=== PATIENT | male | born 1945 | race Caucasian/White ===

== ENCOUNTER 2017-10-09 11:47 | Inpatient (IN) | payer MEDICARE ==
[2017-10-09 12:09] LABS: Absolute Lymphocytes (CBC) 1.1 K/uL (0.7-4.9); Absolute Monocytes 0.5 K/uL (0.1-1.3); Absolute Neutrophil 4.8 K/uL (1.8-8.0); Basophils % 0.7 % (0-1.3); Eosinophils % 0.6 % (0-4.4); Hematocrit 42.8 % (39.6-49.0); Lymphocytes % 17.7 % (15.3-44.8); MCH 28.8 pg (27.0-35.0); MCV 87.2 fL (80-100); MPV 9.1 fL (7.6-11.3); Monocytes % 7.4 % (3.3-12.3); RBC Red Blood Cell Count 4.91 M/uL (4.33-5.43)
[2017-10-09 12:14] LABS: Protime INR 1.13
[2017-10-09 12:45] LABS: CKMB Creatine Kinase MB 4.5 ng/ml (0.3-4.0)
[2017-10-09] MEDS ORDERED: ENOXAPARIN 100 MG/ML SYR SQ ONE (12:50)
[2017-10-09] MEDS ORDERED: METOPROLOL TAR 50 MG TAB ONE (12:50)
[2017-10-09] MEDS ORDERED: ASPIRIN 325 MG TAB ONE (12:50)
[2017-10-09] MEDS ORDERED: METOPROLOL TARTRATE 5 MG/5 ML INJ IV ONE (12:50)
[2017-10-09 14:00] LABS: Thyroid Stimulating Hormone 2.81 uIU/mL (0.34-5.60)
[2017-10-09 14:32] LABS: Potassium 3.3 mEq/L (3.6-5.0)
[2017-10-09 14:38] LABS: Albumin 3.7 g/dL (3.2-5.5); Bilirubin Direct 0.2 mg/dL (0-0.2); Magnesium 1.7 mg/dL (1.8-2.5); Protein, Total 6.8 g/dL (6.0-8.3)
--- NOTE | 2017-10-09 14:51 | EDPHYS ---
Physician Documentation [facility] Name: Dannielle Ulloa Age: 72 yrs Sex: Male : 1945 Arrival Date: 10/09/2017 Time: 11:48 Bed 5 Private MD: ED Physician Christiano Lobo HPI: 10/09 12:57 This 72 yrs old Male presents to ER via Wheelchair with complaints of pm1 Shortness Of Breath. 12:57 The patient has shortness of breath at rest, with light activity, that occurred at pm1 home. Onset: The symptoms/episode began/occurred 5 day(s) ago. The patient's shortness of breath is aggravated by exertion, is alleviated by sitting up. Associated signs and symptoms: Pertinent negatives: chest pain, non-productive cough, productive cough, dizziness, fever, nausea, vomiting. Severity of symptoms: in the emergency department the symptoms are worse. The patient has not experienced similar symptoms in the past. The patient has been recently seen by a physician: the patient's primary care provider, Dr. Wright. Patient went to see his PCP for shortness of breath for the past five days. Shortness of breath progressive getting worse. last night patient had to elevate his head and position himself in order to breath. he also noted that he would easily get winded with exertion. At PCP office, EKG with new onset atrial fibrillation. Historical: - Allergies: 11:51 No Known Allergies; ss - Immunization history:: Adult Immunizations up to date. - Social history:: Smoking status: Patient/guardian denies using tobacco. ROS: 12:57 Constitutional: Negative for fever, chills, and weight loss, Eyes: Negative for injury, pm1 pain, redness, and discharge, ENT: Negative for injury, pain, and discharge, Neck: Negative for injury, pain, and swelling. 12:57 Abdomen/GI: Negative for abdominal pain, nausea, vomiting, diarrhea, and constipation, Back: Negative for injury and pain, : Negative for injury, bleeding, discharge, and swelling, MS/Extremity: Negative for injury and deformity, Skin: Negative for injury, rash, and discoloration, Neuro: Negative for headache, weakness, numbness, tingling, and seizure. 12:57 Cardiovascular: Positive for orthopnea, Negative for chest pain, edema, palpitations, paroxysmal nocturnal dyspnea. 12:57 Respiratory: Positive for shortness of breath, Negative for cough, wheezing. Exam: 12:57 Constitutional: This is a well developed, well nourished patient who is awake, alert, pm1 and in no acute distress. Head/Face: Normocephalic, atraumatic. Eyes: Pupils equal round and reactive to light, extra-ocular motions intact. Lids and lashes normal. Conjunctiva and sclera are non-icteric and not injected. Cornea within normal limits. Periorbital areas with no swelling, redness, or edema. ENT: Nares patent. No nasal discharge, no septal abnormalities noted. Tympanic membranes are normal and external auditory canals are clear. Oropharynx with no redness, swelling, or masses, exudates, or evidence of obstruction, uvula midline. Mucous membranes moist. Neck: Trachea midline, no thyromegaly or masses palpated, and no cervical lymphadenopathy. Supple, full range of motion without nuchal rigidity, or vertebral point tenderness. No Meningismus. Chest/axilla: Normal chest wall appearance and motion. Nontender with no deformity. No lesions are appreciated. 12:57 Respiratory: Lungs have equal breath sounds bilaterally, clear to auscultation and percussion. No rales, rhonchi or wheezes noted. No increased work of breathing, no retractions or nasal flaring. Abdomen/GI: Soft, non-tender, with normal bowel sounds. No distension or tympany. No guarding or rebound. No evidence of tenderness throughout. Back: No spinal tenderness. No costovertebral tenderness. Full range of motion. Skin: Warm, dry with normal turgor. Normal color with no rashes, no lesions, and no evidence of cellulitis. MS/ Extremity: Pulses equal, no cyanosis. Neurovascular intact. Full, normal range of motion. 12:57 Cardiovascular: Rate: tachycardic, Rhythm: irregular, Pulses: no pulse deficits are appreciated, Heart sounds: normal, murmur, not appreciated, rub, not appreciated, gallop, not appreciated, Edema: is not appreciated. 12:57 ECG was reviewed by the Attending Physician. Atrial fibrillation with RVR 12:57 Neuro: Orientation: is normal, Mentation: is normal, Motor: is normal, moves all fours, strength is normal, strength is 5/5 in all extremities. Vital Signs: 11:51 Pulse 122; Resp 28; Pulse Ox 99% on R/A; Weight 119.29 kg; Height 6 ft. 0 in. (182.88 ss cm); Pain 0/10; 12:38 BP 127 / 100; Pulse 96; Resp 18; Pulse Ox 98% on R/A; hb 13:00 BP 103 / 89; Pulse 98; Resp 18; Pulse Ox 98% on R/A; Pain 0/10; ph 13:58 BP 112 / 88; Pulse 96; Resp 16; Pulse Ox 100% on 2 lpm NC; ph 15:00 BP 103 / 86; Pulse 99; Resp 19; Pulse Ox 100% on R/A; hb 16:15 BP 98 / 82; Pulse 110; Resp 18; Pulse Ox 99% on R/A; ph 17:30 BP 108 / 78; Pulse 101; Resp 18; Temp 97.4; Pulse Ox 98% on R/A; Pain 0/10; ph 11:51 Body Mass Index 35.67 (119.29 kg, 182.88 cm) ss 13:58 pt placed on o2 for comfort ph MDM: 11:56 Patient medically screened. [facility] 13:04 Data reviewed: vital signs. Data interpreted: Pulse oximetry: on room air is 98 %. pm1 Interpretation: normal. 14:43 Counseling: I had a detailed discussion with the patient and/or guardian regarding: the pm1 historical points, exam findings, and any diagnostic results supporting the discharge/admit diagnosis, lab results, the need for further work-up and treatment in the hospital. 10/09 11:50 Order name: Basic Metabolic Panel; Complete Time: 14:42 ag 10/09 11:50 Order name: BNP; Complete Time: 12:54 ag 10/09 11:50 Order name: CBC with Diff; Complete Time: 12:54 ag 10/09 11:50 Order name: Ckmb; Complete Time: 14:42 ag 10/09 11:50 Order name: CPK; Complete Time: 14:42 ag 10/09 11:50 Order name: LFT's; Complete Time: 14:42 ag 10/09 11:50 Order name: Magnesium; Complete Time: 14:42 ag 10/09 11:50 Order name: PT-INR; Complete Time: 12:54 ag 10/09 11:50 Order name: Ptt, Activated; Complete Time: 12:54 ag 10/09 11:50 Order name: Troponin (emerg Dept Use Only); Complete Time: 12:54 ag 10/09 11:50 Order name: TSH; Complete Time: 14:42 ag 10/09 11:58 Order name: Echo w/ Doppler carlos manuel 10/09 11:50 Order name: EKG; Complete Time: 11:52 ag 10/09 11:50 Order name: Cardiac monitoring; Complete Time: 11:58 ag 10/09 11:50 Order name: EKG - Nurse/Tech; Complete Time: 11:58 ag 10/09 11:50 Order name: IV Saline Lock; Complete Time: 11:58 ag 10/09 11:50 Order name: Labs collected and sent; Complete Time: 11:58 ag 10/09 11:50 Order name: O2 Per Protocol; Complete Time: 11:58 ag 10/09 11:50 Order name: O2 Sat Monitoring; Complete Time: 11:58 ag 10/09 11:50 Order name: Urine Dipstick-Ancillary (obtain specimen); Complete Time: 14:00 ag 10/09 13:47 Order name: Diet Heart Healthy; Complete Time: 13:48 ph 10/09 15:48 Order name: CONS Physician Consult EDMS Administered Medications: 12:36 Drug: Lovenox 1 mg/kg Route: Sub-Q; Site: abdomen; hb 13:00 Follow up: Response: No adverse reaction ph 12:36 Drug: Lopressor 5 mg Route: IVP; Site: right antecubital; hb 13:00 Follow up: Response: No adverse reaction; Cardiac rhythm changed ph 12:37 Drug: Lopressor (metoprolol TARTRATE) 50 mg Route: PO; hb 13:00 Follow up: Response: No adverse reaction; Cardiac rhythm changed ph 12:37 Drug: Aspirin 325 mg Route: PO; hb 13:00 Follow up: Response: No adverse reaction ph 16:06 Drug: Magnesium Sulfate 1 grams Route: IVPB; Infused Over: 1 hrs; Site: left hb antecubital; 17:15 Follow up: Response: No adverse reaction; IV Status: Completed infusion ph 16:06 Drug: Potassium Effervescent Tablet 50 mEq Route: PO; hb 16:30 Follow up: Response: No adverse reaction ph 16:08 Not Given (not indicated): Lopressor 5 mg IVP once; Hold for SBP <100 or HR <60. hb Disposition: 10/09/17 14:50 Hospitalization ordered by Omid Garvin for Inpatient Admission. Preliminary diagnosis is Atrial fibrillation and flutter - New onset. - Bed requested for Telemetry/MedSurg (Inpatient). - Status is Inpatient Admission. ss - Condition is Stable. - Problem is new. - Symptoms have improved. UTI on Admission? No Addendum: 10/12/2017 08:32 Co-signature as Attending Physician, Christiano Lobo MD I agree with the assessment and c eagle plan of care. Signatures: Dispatcher [employer] EDMS Christiano Lobo MD MD cha Smirch, Shelby, EFRAÍN RN ss Preeti Carrillo Patrick, SHERYL DIRECTOR BUSINESS DEVELOPMENT pm1 Viji Osorio RN RN Holly Brink RN ph Corrections: (The following items were deleted from the chart) 10/09 12:16 11:52 Chest Single View+RAD.RAD.BRZ ordered. EDLA EDMS
--- NOTE | 2017-10-09 14:51 | ER ---
Nurse's Notes [facility] Name: Dannielle Ulloa Age: 72 yrs Sex: Male : 1945 Arrival Date: 10/09/2017 Time: 11:48 Bed 5 Private MD: Diagnosis: Atrial fibrillation and flutter-New onset Presentation: 10/09 11:49 Presenting complaint: Patient states: shortness of breath that began 5 days ago. Pt had ss an outpatient EKG today which showed new onset AFIB RVR. Transition of care: patient was not received from another setting of care. Onset of symptoms was October 05, 2017. Care prior to arrival: None. 11:49 Method Of Arrival: Wheelchair ss 11:49 Acuity: PO 3 ss Historical: - Allergies: 11:51 No Known Allergies; ss - Immunization history:: Adult Immunizations up to date. - Social history:: Smoking status: Patient/guardian denies using tobacco. Screenin:30 Abuse screen: Denies threats or abuse. Denies injuries from another. Nutritional ph screening: No deficits noted. Tuberculosis screening: No symptoms or risk factors identified. Fall Risk None identified. Assessment: 12:00 General: Appears in no apparent distress. comfortable, well groomed, Behavior is calm, ph cooperative, appropriate for age, Denies fever, feeling ill. Pain: Denies pain. Neuro: Level of Consciousness is awake, alert, obeys commands, Oriented to person, place, time, situation. Cardiovascular: Reports lightheadedness, shortness of breath, Denies chest pain, diaphoresis, nausea, vomiting, Capillary refill < 3 seconds Patient's skin is warm and dry. Rhythm is atrial fibrillation with rapid ventricular response. Respiratory: Reports shortness of breath at rest Airway is patent Respiratory effort is even, unlabored, Respiratory pattern is regular, symmetrical, Breath sounds are clear bilaterally. Denies cough. GI: No signs and/or symptoms were reported involving the gastrointestinal system. Derm: Skin is intact, is healthy with good turgor, Skin is pink, warm \\T\\ dry. Musculoskeletal: Circulation, motion, and sensation intact. Range of motion: intact in all extremities. 13:00 Reassessment: Patient appears in no apparent distress at this time. Patient and/or ph family updated on plan of care and expected duration. Pain level reassessed. Patient is alert, oriented x 3, equal unlabored respirations, skin warm/dry/pink. Pt resting quietly, cardiac rhythm remains a-fib, however rate has decreased to 85-105 bpm, pt denies pain at this time, awaiting room assignment. 13:53 Reassessment: Patient appears in no apparent distress at this time. Patient and/or ph family updated on plan of care and expected duration. Pain level reassessed. Patient is alert, oriented x 3, equal unlabored respirations, skin warm/dry/pink. Pt resting quietly, states, " I haven't eaten anything all day and I am hungry. Do you think I can get something to eat?" ERP notified of pt's request, tray ordered from cafeteria. 14:30 Reassessment: Patient appears in no apparent distress at this time. Patient and/or hb family updated on plan of care and expected duration. Pain level reassessed. Patient is alert, oriented x 3, equal unlabored respirations, skin warm/dry/pink. Admission ordered, awaiting room assignment at this time. 15:30 Reassessment: Patient appears in no apparent distress at this time. No changes from hb previously documented assessment. Patient and/or family updated on plan of care and expected duration. Pain level reassessed. Patient is alert, oriented x 3, equal unlabored respirations, skin warm/dry/pink. 16:30 Reassessment: Patient appears in no apparent distress at this time. No changes from ph previously documented assessment. Patient and/or family updated on plan of care and expected duration. Pain level reassessed. Patient is alert, oriented x 3, equal unlabored respirations, skin warm/dry/pink. 17:42 Reassessment: Patient appears in no apparent distress at this time. Patient and/or ph family updated on plan of care and expected duration. Pain level reassessed. Patient is alert, oriented x 3, equal unlabored respirations, skin warm/dry/pink. Report called to Junior Ray RN Patient denies pain at this time. Vital Signs: 11:51 Pulse 122; Resp 28; Pulse Ox 99% on R/A; Weight 119.29 kg; Height 6 ft. 0 in. (182.88 ss cm); Pain 0/10; 12:38 BP 127 / 100; Pulse 96; Resp 18; Pulse Ox 98% on R/A; hb 13:00 BP 103 / 89; Pulse 98; Resp 18; Pulse Ox 98% on R/A; Pain 0/10; ph 13:58 BP 112 / 88; Pulse 96; Resp 16; Pulse Ox 100% on 2 lpm NC; ph 15:00 BP 103 / 86; Pulse 99; Resp 19; Pulse Ox 100% on R/A; hb 16:15 BP 98 / 82; Pulse 110; Resp 18; Pulse Ox 99% on R/A; ph 17:30 BP 108 / 78; Pulse 101; Resp 18; Temp 97.4; Pulse Ox 98% on R/A; Pain 0/10; ph 11:51 Body Mass Index 35.67 (119.29 kg, 182.88 cm) ss 13:58 pt placed on o2 for comfort ph ED Course: 11:48 Patient arrived in ED. ss 11:51 Triage completed. ss 11:51 Arm band placed on right wrist. ss 11:55 Christiano Lobo MD is Attending Physician. [facility] 11:56 Inserted saline lock: 20 gauge in right antecubital area, using aseptic technique. 3 Blood collected. 11:56 Initial lab(s) drawn, by wv, sent to lab. 3 11:58 Edi Baker NP is PHCP. pm1 12:29 Holly Brink RN is Primary Nurse. ph 12:31 Patient has correct armband on for positive identification. Placed in gown. Bed in low ph position. Call light in reach. Side rails up X 1. knot saw operator on. Pulse ox on. NIBP on. Warm blanket given. 14:50 Omid Garvin MD is Hospitalizing Provider. pm1 17:44 No provider procedures requiring assistance completed. Patient admitted, IV remains in ph place. Administered Medications: 12:36 Drug: Lovenox 1 mg/kg Route: Sub-Q; Site: abdomen; hb 13:00 Follow up: Response: No adverse reaction ph 12:36 Drug: Lopressor 5 mg Route: IVP; Site: right antecubital; hb 13:00 Follow up: Response: No adverse reaction; Cardiac rhythm changed ph 12:37 Drug: Lopressor (metoprolol TARTRATE) 50 mg Route: PO; hb 13:00 Follow up: Response: No adverse reaction; Cardiac rhythm changed ph 12:37 Drug: Aspirin 325 mg Route: PO; hb 13:00 Follow up: Response: No adverse reaction ph 16:06 Drug: Magnesium Sulfate 1 grams Route: IVPB; Infused Over: 1 hrs; Site: left hb antecubital; 17:15 Follow up: Response: No adverse reaction; IV Status: Completed infusion ph 16:06 Drug: Potassium Effervescent Tablet 50 mEq Route: PO; hb 16:30 Follow up: Response: No adverse reaction ph 16:08 Not Given (not indicated): Lopressor 5 mg IVP once; Hold for SBP <100 or HR <60. hb Outcome: 14:50 Decision to Hospitalize by Provider. pm1 17:44 Admitted to Tele accompanied by tech, via wheelchair, room 409. ph 17:44 Condition: stable 17:44 Instructed on the need for admit. 18:05 Patient left the ED. Signatures: Christiano Lobo MD MD cha Smirch, Shelby, RN RN Holly Brink RN RN Edi Baker, SHERYL VARNISH COOKER pm1 Viji Osorio RN RN [employer] 3 Corrections: (The following items were deleted from the chart) 15:39 15:39 BP 103 / 86; Pulse 99bpm; Resp 19bpm; Pulse Ox 100% RA; hb hb
--- NOTE | 2017-10-09 14:56 | ECHO ---
HEIGHT: 6 ft 0in WEIGHT: 263 lb oz DATE OF STUDY: 10/09/[address]: Christiano Lobo MD 2-DIMENSIONAL: YES M.MODE: YES DOPPLER: YES COLOR FLOW: YES TDS: NO PORTABLE: NO DEFINITY: NO BUBBLE STUDY: NO DIAGNOSIS: CONGESTIVE HEART FAILURE CARDIAC HISTORY: CATHERIZATION: NO SURGERY: NO PROSTHETIC VALVE: NO PACEMAKER: NO MEASUREMENTS (cm) DIASTOLIC (NORMALS) SYSTOLIC (NORMALS) IVSd 1.1 (0.6-1.2) LA Diam 4.5 (1.9-4.0) LVEF 35-39% LVIDd 5.3 (3.5-5.7) LVIDs 4.0 (2.0-3.5) %FS 25% LVPWd 1.1 (0.6-1.2) Ao Diam 3.3 (2.0-3.7) 2 DIMENSIONAL ASSESSMENT: RIGHT ATRIUM: DILATED LEFT ATRIUM: DILATED RIGHT VENTRICLE: NORMAL LEFT VENTRICLE: NORMAL TRICUSPID VALVE: NORMAL MITRAL VALVE: NORMAL PULMONIC VALVE: NORMAL AORTIC VALVE: MILD SCLEROSIS PERICARDIAL EFFUSION: NONE AORTIC ROOT: NORMAL LEFT VENTRICULAR WALL MOTION: GLOBAL HYPOKINESIS. DOPPLER/COLOR FLOW: MILD MITRAL AND TRICUSPID REGURGITATION. NORMAL RIGHT VENTRICULAR SYSTOLIC PRESSURE. COMMENTS: DEPRESSED LEFT VENTRICULAR EJECTION FRACTION. DILATED LEFT AND RIGHT ATRIUM. MILD AORTIC SCLEROSIS WITH NO AORTIC STENOSIS/AORTIC REGURGITATION. MILD MITRAL AND TRICUSPID REGURGITATION. ATRIAL FIBRILLATION, HEART RATE 119 BEATS PER MINUTE. TECHNOLOGIST: DANILO BARTON
[2017-10-09] MEDS ORDERED: ONDANSETRON 4 MG/2 ML VIAL IV PRN (15:43)
[2017-10-09] MEDS ORDERED: ACETAMINOPHEN 500 MG TAB PO PRN (15:43)
[2017-10-09] MEDS ORDERED: NA CHLORIDE 0.9% 1,000 ML IV SCH (16:00)
[2017-10-09] MEDS ORDERED: MAGNESIUM SULFATE 1 gm IVPB 1 GM/100 ML BAG IV ONE (16:29)
[2017-10-09] MEDS ORDERED: POTASSIUM 25 MEQ EFFERV TAB ONE (16:29)
[2017-10-09] MEDS ORDERED: LISINOPRIL 10 MG TAB PO SCH (16:44)
[2017-10-09] MEDS ORDERED: METOPROLOL TARTRATE 5 MG/5 ML INJ IV PRN (16:45)
[2017-10-09] MEDS: FUROSEMIDE 40 MG/4 ML VIAL IV SCH (17:00)
[2017-10-09] MEDS: METOPROLOL TAR 25 MG TAB PO SCH (18:43)
[2017-10-09] MEDS: ENOXAPARIN 100 MG/ML SYR SQ SCH (20:10)
[2017-10-09] MEDS ORDERED: FUROSEMIDE 40 MG/4 ML VIAL IV ONE (21:58)
[2017-10-10] MEDS ORDERED: POTASSIUM CL SA 10 MEQ TAB PO ONE ×2 (00:10→21:00)
--- NOTE | 2017-10-10 02:20 | HP ---
Date of Admission: 10/09/2017 Primary Care Physician: Allison Wright DO. Project Drilling Engineer: Jean Connell MD Chief Complaint: Shortness of breath. History Of Present Illness: The patient is a 72-year-old male who was in his usual state of health with no significant past medical history, who comes in with shortness of breath. The patient states that for the past 5 days, he has been having difficulty breathing when he sleeps at night. He notes that he has swelling of his lower extremities. He needed to put a couple of pillows in order to help him breathe. He also had to sleep in a recliner in order to get continuous sleep. The patient does note getting up to use the restroom to urinate multiple times a night. The patient has not been diagnosed with any previous medical conditions, was recently established with Dr. Wright, and on the day of admission was in her office. Initial workup revealed that he was in atrial fibrillation with RVR, and therefore, he was transferred over to the ER. The patient's symptoms are constant, moderate, progressively worsening. He denies any chest pain, nausea, vomiting, fevers, chills, cough, sputum production, or gastroesophageal reflux symptoms. The patient's workup revealed a BNP of 707. Potassium and magnesium were low. Troponin was 0.04. His EKG showed AFib with RVR. rate in the 120s. His chest x-ray showed CHF. The patient was given aspirin and IV Lopressor. His potassium was replaced. The patient was then referred for admission. When the patient was seen in the ER, he was awake, alert, oriented x3, in some mild distress. Past Medical History: History of basal cell cancer. Past Surgical History: None. Allergies: TO PENICILLIN A CHILD. DOES NOT REMEMBER THE REACTION. Medications: The patient takes a whole host of supplements including Mannate[employer] , CoQ10, amongst others including topical ointments. Social History: The patient denies any tobacco use, alcohol use, or illicit drug use. Family History: Father of heart attack. Mother had stroke. Father also had congestive heart failure. Review of Systems: An 11-point system reviewed, negative except as per HPI. Physical Examination: Vital Signs: Pulse 122, respirations 28, pulse ox 99% on room air, blood pressure 127/100. General: Awake, alert, oriented x3. Elderly male somewhat in distress. Obese. HEENT: Normocephalic, atraumatic. PERRLA. EOMI. Moist mucous membranes. Oropharynx is clear. Poor dentition. Conjunctiva is anicteric. Neck: Supple. No JVD. Trachea midline. CV: S1, S2. Irregularly irregular. Peripheral pulses are present bilaterally. No murmurs. Respiratory: Diminished breath sounds. Some crackles are heard. No wheezing or stridor. Gastrointestinal: Soft abdomen. Obese, nontender, nondistended. Positive bowel sounds. No guarding or rigidity. Extremities: No clubbing, cyanosis, 2+ edema up to the shins. Skin: The patient has lesions on his face and forehead, consistent with seborrheic keratosis. He also has some remnants of basal cell carcinoma on the right side of his tenriism. Neurologic: Cranial nerves 2 through 12 intact grossly. No focal neurological deficit. Speech is normal. Strength is 5/5 in bilateral upper and lower extremities. Sensation intact to light touch. Psych: Mood is okay. Affect is full. Insight and judgment are fair. Laboratory Data: Sodium 136, potassium 3.3, chloride 104, CO2 of 26. BUN 27, creatinine 0.93, glucose 94, calcium 9.1, magnesium 1.7. Troponin 0.04. BNP 707. TSH 2.81. WBC 6.5, H and H 14.1 and 42.8, platelets 189. INR 1.13. Diagnostic Data: Echocardiogram shows EF 35-39%. Chest x-ray shows CHF. EKG shows atrial fibrillation with RVR, rate of 128, right bundle-branch block. Assessment And Plan: A 72-year-old male with; 1. Acute new onset atrial fibrillation with rapid ventricular response, improved with IV Lopressor. We will continue with rate control with beta- blockers and start anticoagulation with Lovenox. Dr. Connell with Cardiology has been consulted, likely secondary to his underlying severe congestive heart failure and multiple electrolyte abnormalities. 2. Hypokalemia, replace and monitor. 3. Hypomagnesemia, replace and monitor. 4. Acute systolic congestive heart failure, new onset, likely due to long- standing elevated blood pressure. 5. Elevated troponin level, likely secondary to above. 6. Likely benign prostatic hyperplasia. The patient has nocturia. We will start on Flomax. 7. History of basal cell carcinoma, untreated. The patient will need outpatient followup with Dermatology. 8. Obesity. 9. Gastrointestinal and deep venous thrombosis prophylaxis with PPI and Lovenox. Plan: Admit the patient to med surgical, admit as inpatient. no living will or MPOA. ASHU Voice ID: [id number] MTDD
[2017-10-10 07:17] LABS: Absolute Lymphocytes (CBC) 1.5 K/uL (0.7-4.9); Absolute Monocytes 0.5 K/uL (0.1-1.3); Absolute Neutrophil 4.4 K/uL (1.8-8.0); Basophils % 0.6 % (0-1.3); Eosinophils % 1.4 % (0-4.4); Hematocrit 40.1 % (39.6-49.0); Lymphocytes % 22.9 % (15.3-44.8); MCV 87.4 fL (80-100); MPV 9.6 fL (7.6-11.3); Monocytes % 7.8 % (3.3-12.3); RBC Red Blood Cell Count 4.59 M/uL (4.33-5.43)
[2017-10-10] MEDS: METOPROLOL TAR 25 MG TAB PO SCH (07:29)
[2017-10-10 07:31] LABS: Albumin 3.4 g/dL (3.2-5.5); Bilirubin Total 0.8 mg/dL (0.3-1.2); Magnesium 1.9 mg/dL (1.8-2.5); Potassium 3.7 mEq/L (3.6-5.0)
[2017-10-10] MEDS: TAMSULOSIN 0.4 MG SR CAP PO SCH (08:40)
[2017-10-10] MEDS: ENOXAPARIN 100 MG/ML SYR SQ SCH (08:40)
[2017-10-10] MEDS: FUROSEMIDE 40 MG/4 ML VIAL IV SCH (08:40)
[2017-10-10] MEDS: FUROSEMIDE 40 MG TABLET PO SCH (08:58)
[2017-10-10] MEDS: APIXABAN 5 MG TABLET PO SCH ×2 (08:58→21:14)
--- NOTE | 2017-10-10 13:46 | CON ---
Chief Complaint: Shortness of breath. History Of Present Illness: Mr. Ulloa went to see a doctor for the first time in some 25 years. He had been feeling more short of breath than usual. He also noticed it was hard to lay flat. When he came to the hospital, he had chest x-ray, evidence of congestive heart failure. Echocardiogram revea ls ejection fraction is in the 30s and he is in atrial fibrillation. He has never had any of those p roblems before. Medications: He takes no medications. Allergies: REPORTS NO ALLERGIES. Social History: Uses no tobacco, no alcohol, no illegal drug. Past Surgical History: No surgeries. Physical Examination: Vital Signs: He is 6 feet tall, 259 pounds. General: Alert, oriented, pleasant, not in distress. Lungs: Clear. Heart: Irregularly irregular. No significant murmur. Abdomen: Soft. Extremities: Mild edema. Distal pulses palpable. Laboratory Data: His electrocardiogram does not seem to be in the chart for some reason. I will jose maria e an effort to make sure that makes it to the chart. Reportedly shows atrial fib with rapid ventricu lar response, right bundle heart rate 128. Presently, on medications his heart rate is 90. Impression: The patient has rate control. Will be given oral anticoagulation with Eliquis 5 b.i.d. I think he should be on Entresto, so I will stop the lisinopril and in 3 days we can start Entresto after that for at least 36 hours, and after he has been anticoagulated for 3 weeks he could be topher t back for an elective cardioversion to see if we can reestablish sinus rhythm and likely the patient is going to try Betapace on instead of metoprolol. I would not recommend that switch now, but in ab out 3 weeks after anticoagulation. He needs to have an evaluation of his coronary arteries and an ou tpatient pharmacologic nuclear stress test would be helpful. At this point, I believe hospitalist tamela white could be outpatient. KRISTEN/SOLO Voice ID: [id number] Report ID: [id number]
[2017-10-10 13:58] LABS: Urine Appearance CLEAR; Urine Bilirubin NEGATIVE (NEG); Urine Blood NEGATIVE (NEG); Urine Color YELLOW; Urine Glucose NEGATIVE (NEG); Urine Microscopic Reflex NO UMIC; Urine Protein NEGATIVE (NEG); Urine Specific Gravity 1.015 (1.005-1.030); Urine Urobilinogen 0.2 mg/dL (0.2-1.0); Urine pH 5.5 (5.0-7.0)
--- NOTE | 2017-10-10 15:19 | PN ---
Date of Progress Note: 10/10/2017 Subjective: The patient seen and examined. Chart reviewed and case discussed with RN and Dr. Connell . The patient states that he is still having a lot of difficulty, lying flat, he was unable to get m uch sleep and had to sit up on the chair to get some rest. The patient's blood pressure has been run jayden on the low side. Review of Systems: Negative except as above. Medications: Reviewed. Physical Examination: Vital Signs: Temperature 96.9, heart rate 59, blood pressure 105/68, respirations 16, O2 98% on 2 L via nasal cannula. General: Awake, alert, oriented x3, in some mild distress, ill-appearing male, elderly, obese, BMI 3 5.2. CV: S1, S2, irregularly irregular. Peripheral pulses present bilaterally. Respiratory: Diminished breath sounds. Some crackles. No wheezing. Abdomen: Abdomen is soft, nontender, nondistended. Positive bowel sounds. Extremities: No clubbing, cyanosis, 2+ edema bilateral lower extremities. Neurologic: Nonfocal. Skin: The patient has multiple lesions on the left side of his face and forehead, possible seborrhei c keratosis versus melanoma. Laboratory Data: Sodium 139, potassium 3.7, chloride 106, CO2 of 27, BUN 37, creatinine 1.16, glucos e 85, calcium 8.9, magnesium 1.9. WBC 6.6, H and H 13.3, 40.1, and platelets 190. Assessment And Plan: A 72-year-old male with: 1.New onset atrial fibrillation with rapid ventricular response. The patient still in atrial fibril lation. Continue beta-dio. The patient will be switched over to Eliquis today from Lovenox. Ap preciate Dr. Connell' input likely secondary to his acute congestive heart failure. No acute abnormal ities. 2.Hypokalemia, replace and monitor. 3.Hypomagnesemia. We will continue to monitor and replace. 4.Acute systolic congestive heart failure, new onset EF is 35-39%. The patient will need Entresto o n discharge. 5.Elevated troponin level, likely secondary to acute congestive heart failure and atrial fibrillatio n. No chest pain. 6.Benign prostatic hyperplasia. The patient started on Flomax. 7.History of basal cell carcinoma, untreated. The patient will need outpatient followup with Dermat ology. The patient is currently not a candidate for surgery due to his acute cardiac issues. 8.Severe obesity. BMI 35.2. 9.Hypotension. The patient unable to tolerate medications due to his blood pressure. 10.Gastrointestinal and deep venous thrombosis prophylaxis with PPI and the patient will be switched over to Eliquis. ASHU Voice ID: [id number] Report ID: [id number]
[2017-10-11] MEDS: METOPROLOL TAR 25 MG TAB PO SCH ×2 (06:00→08:54)
[2017-10-11 06:25] LABS: Absolute Lymphocytes (CBC) 1.4 K/uL (0.7-4.9); Absolute Monocytes 0.6 K/uL (0.1-1.3); Absolute Neutrophil 4.5 K/uL (1.8-8.0); Basophils % 0.7 % (0-1.3); Eosinophils % 2.1 % (0-4.4); Hematocrit 39.7 % (39.6-49.0); Lymphocytes % 21.1 % (15.3-44.8); MCV 87.3 fL (80-100); MPV 9.6 fL (7.6-11.3); Monocytes % 8.5 % (3.3-12.3); RBC Red Blood Cell Count 4.55 M/uL (4.33-5.43)
[2017-10-11 06:51] LABS: Albumin 3.3 g/dL (3.2-5.5); Bilirubin Total 0.8 mg/dL (0.3-1.2); Potassium 3.3 mEq/L (3.6-5.0); Protein, Total 6.3 g/dL (6.0-8.3)
[2017-10-11] MEDS ORDERED: POTASSIUM 25 MEQ EFFERV TAB PO ONE (08:00)
[2017-10-11] MEDS: TAMSULOSIN 0.4 MG SR CAP PO SCH (08:55)
[2017-10-11] MEDS: APIXABAN 5 MG TABLET PO SCH ×2 (08:55→21:06)
[2017-10-11] MEDS: FUROSEMIDE 40 MG TABLET PO SCH (10:44)
[2017-10-11] MEDS ORDERED: LISINOPRIL 5 MG TAB PO SCH (12:00)
[2017-10-11] MEDS ORDERED: CARVEDILOL 3.125 MG TAB PO SCH (12:00)
--- NOTE | 2017-10-11 15:12 | PN ---
Date of Progress Note: 10/11/2017 Subjective: The patient is seen and examined. Chart reviewed and case discussed with RN. The patie nt continues to be in atrial fibrillation with low blood pressure, which he states is his baseline bl ood pressure. The patient denies any dizziness. No palpitation. Does report some orthopnea and sti ll switching between the sofa bed and his hospital bed. Review of Systems: Negative except as above. Medications: Reviewed. Physical Examination: Vital Signs: Temperature 97, heart rate 98, blood pressure 86/65, respiration 18, O2 98% on 1 L nasa l cannula. General: Awake, alert, oriented x3. Elderly male, obese, BMI 35.7. CV: S1, S2. Irregularly irregular. Peripheral pulses present bilaterally. Respiratory: Breath sounds improved significantly. No wheezing. No stridor. Gastrointestinal: Abdomen is soft, nontender, nondistended. Positive bowel sounds. Extremities: No clubbing, cyanosis. Peripheral edema. SKIN: The patient has multiple lesions on t he right side of his face and scalp consistent with seborrheic keratosis and possible blaze noma. Neurologic: Nonfocal. Laboratory Data: Sodium 141, potassium 3.3, chloride 106, CO2 29, BUN 32, creatinine 1.05, glucose 8 9, calcium 9. WBC is 6.6, H and H 13.2 and 39.7, platelets 171. Assessment And Plan: A 72-year-old male with: 1.New onset atrial fibrillation with rapid ventricular response. The rate is better controlled. Be ta-ido dose was reduced due to hypotension. Continue Eliquis. Dr. Connell on case. 2.Hypokalemia, replaced. Continue monitor. 3.Hypomagnesemia, replaced. We will monitor. 4.Acute systolic heart failure, ejection fraction 35-39%. Medications adjusted Entresto on dischar ge. 5.Elevated troponin level likely secondary to atrial fibrillation and congestive heart failure. No chest pain. 6.Benign prostatic hyperplasia. The patient started on Flomax. He will need a PSA test and Urology evaluation as an outpatient to rule out any other abnormalities from the prostate. 7.History of basal cell carcinoma of the face, untreated. The patient instructed to follow up with Dermatology or his PCP. 8.Morbid obesity, BMI 35.7 with comorbid condition. 9.Hypotension. Medications adjusted. The patient is asymptomatic. We will continue to monitor. 10.Gastrointestinal and deep venous thrombosis prophylaxis, PPI, the patient already on Eliquis. ASHU Voice ID: [id number] Report ID: [id number]
--- NOTE | 2017-10-11 15:15 | RAD REPORT ---
EXAM DESCRIPTION: Heath Pa And Lat (2 Views)10/11/2017 3:00 pm CLINICAL HISTORY: Shortness of breath COMPARISON: October 09, 2017 FINDINGS: Mild to moderate bilateral pulmonary opacities, small pleural effusions and cardiomegaly are without significant change IMPRESSION: No change in CHF
--- NOTE | 2017-10-11 16:32 | PN ---
Subjective: Mr. Ulloa is still orthopneic, but his lungs sound much better. We are going to get a chest x-ray. He gets hypotensive with very tiny doses of medications. I would recommend that we can reduce the medications enough that his systolic blood pressure is almost always in the high 90s through a pharmacologic stress test. If it indicates ischemia, we will do a cardiac cath. He might benefit from the EZEQUIEL cardioversion. We could attempt to establish sinus rhythm even though he has been in atrial fibrillation probably for some time. If there is no left atrial appendage thrombus demonstrated by EZEQUIEL, he could be safely done that would be a [place] procedure. So we will get the stress test tomorrow, try and get him the tiniest doses of beta-blockers and lisinopril and see if we can help him that way. DAMASO Voice ID: [id number] Report ID: [id number] MTDMarek
[2017-10-11] MEDS: CARVEDILOL 3.125 MG TAB PO SCH (17:31)
[2017-10-12 04:22] LABS: Absolute Lymphocytes (CBC) 0.9 K/uL (0.7-4.9); Absolute Monocytes 0.6 K/uL (0.1-1.3); Absolute Neutrophil 5.9 K/uL (1.8-8.0); Basophils % 0.5 % (0-1.3); Eosinophils % 0.8 % (0-4.4); Hematocrit 37.2 % (39.6-49.0); Lymphocytes % 12.4 % (15.3-44.8); MCH 29.7 pg (27.0-35.0); MCV 86.4 fL (80-100); MPV 9.4 fL (7.6-11.3); Monocytes % 8.5 % (3.3-12.3); RBC Red Blood Cell Count 4.31 M/uL (4.33-5.43)
[2017-10-12 04:33] LABS: Albumin 3.2 g/dL (3.2-5.5); Bilirubin Total 0.9 mg/dL (0.3-1.2); Potassium 3.7 mEq/L (3.6-5.0); Protein, Total 6.2 g/dL (6.0-8.3)
[2017-10-12 06:36] VITALS: BMI 35.3
[2017-10-12] MEDS: CARVEDILOL 3.125 MG TAB PO SCH ×2 (07:53→16:58)
--- NOTE | 2017-10-12 08:56 | RAD REPORT ---
EXAM DESCRIPTION: Heath Single View10/12/2017 6:53 am CLINICAL HISTORY: Shortness of breath COMPARISON: October 11 FINDINGS: Opacities within the right lung base have worsened. Moderate diffuse bilateral pulmonary opacities are present. Pleural effusions are unchanged. The heart remains enlarged IMPRESSION: Moderate CHF Worsening in a right basilar opacity probably representing combination of pulmonary edema, atelectasi s and pleural effusion. Superimposed pneumonia could also have this appearance
[2017-10-12] MEDS ORDERED: REGADENOSON 0.4 MG/5 ML SYR IV ONE (08:57)
[2017-10-12] MEDS ORDERED: POTASSIUM 25 MEQ EFFERV TAB PO ONE (09:00)
[2017-10-12] MEDS: LISINOPRIL 5 MG TAB PO SCH (09:44)
[2017-10-12] MEDS: FUROSEMIDE 40 MG TABLET PO SCH (09:44)
[2017-10-12] MEDS: APIXABAN 5 MG TABLET PO SCH ×2 (09:45→22:18)
[2017-10-12] MEDS: TAMSULOSIN 0.4 MG SR CAP PO SCH (09:45)
--- NOTE | 2017-10-12 17:43 | P.PN ---
Subjective Date of Service: 10/12/17 Primary Care Provider: Dr Wright Chief Complaint: Afib with RVR Pt seen and examined at bedside. Chart reviewed. Pt was not able to complete the Stress test today as he got anxious and was not able to lay flat. Will try again kerry and f/u with Cardiology. Review of Systems 10-point ROS is otherwise unremarkable Physical Examination - Vital Signs Temperature: 97.0 F Blood Pressure: 106/70 Pulse: 100 Respirations: 18 Pulse Ox (%): 100 - Physical Exam General: Alert, In no apparent distress HEENT: Atraumatic, PERRLA, EOMI Neck: Supple, JVD not distended Respiratory: Clear to auscultation bilaterally, Normal air movement Cardiovascular: Regular rate/rhythm, Normal S1 S2 Gastrointestinal: Normal bowel sounds, No tenderness Musculoskeletal: No tenderness Integumentary: No rashes Neurological: Normal speech, Normal tone, Normal affect Lymphatics: No axilla or inguinal lymphadenopathy - Studies Medications List Reviewed: Yes Assessment & Plan - Problems (Diagnosis) (1) Atrial fibrillation with RVR Onset Date: 10/12/17 Current Visit: No Status: Acute Plan: Now rate and rhythm control -Anticoagulation with Eliquis -Rate control with Coreg. Dose Decreased due to Hypotension (2) Acute systolic CHF (congestive heart failure) Onset Date: 10/12/17 Current Visit: No Status: Acute Plan: Echo with EF of 30-35% -Cardiology consulted. -Stress test pending. Unsuccessful today. -On GABINO and Lasix at this time. (3) History of basal cell carcinoma Onset Date: 10/12/17 Current Visit: No Status: Chronic (4) Obesity Onset Date: 10/12/17 Current Visit: No Status: Chronic Qualifiers: Obesity type: due to excess calories Obesity classification: adult class 2 (BMI 35 - 39.9) Serious obesity comorbidity presence: with serious comorbidity Body mass index: BMI 35.0-35.9 Qualified Code(s): E66.01 - Morbid (severe) obesity due to excess calories; Z68.35 - Body mass index (BMI) 35.0-35.9, adult; Z68.35 - Body mass index (BMI) 35.0-35.9, adult Discharge Plan: Home Plan to discharge in: 24 Hours - Code Status/Comfort Care Code Status Assessed: Yes Critical Care: No
[2017-10-12] MEDS ORDERED: NA CHLORIDE 0.9% 250 ML IV ONE (19:56)
[2017-10-12] MEDS ORDERED: NA CHLORIDE 0.9% 250 ML ONE (19:58)
[2017-10-12] MEDS ORDERED: ALPRAZOLAM 0.5 MG TABLET PO ONE (21:08)
[2017-10-13 04:24] VITALS: TEMP 97.6
[2017-10-13] MEDS: CARVEDILOL 3.125 MG TAB PO SCH (05:55)
--- NOTE | 2017-10-13 06:43 | P.PN ---
Date of Service: 10/12/17 Spoke to nursing staff re: low blood pressure. Reviewed chart and per cardiology note, recommendation to keep SBP>90. Advised nurse to notify cardiology if SBP<90.
[2017-10-13 09:00] VITALS: O2SAT 97
[2017-10-13] MEDS: LISINOPRIL 5 MG TAB PO SCH (09:00)
[2017-10-13] MEDS: APIXABAN 5 MG TABLET PO SCH (10:19)
[2017-10-13] MEDS: TAMSULOSIN 0.4 MG SR CAP PO SCH (10:19)
[2017-10-13] MEDS: FUROSEMIDE 40 MG TABLET PO SCH (10:20)
--- NOTE | 2017-10-13 13:29 | P.DS ---
Admission Date: 10/09/17 Discharge Date: 10/13/17 Primary Care Provider: Dr Wright Disposition: ROUTINE DISCHARGE Discharge Condition: GOOD Reason for Admission: Afib with RVR Consultations: Cardiology - Problems (1) Atrial fibrillation with RVR Onset Date: 10/12/17 Current Visit: No Status: Acute (2) Acute systolic CHF (congestive heart failure) Onset Date: 10/12/17 Current Visit: No Status: Acute (3) History of basal cell carcinoma Onset Date: 10/12/17 Current Visit: No Status: Chronic (4) Obesity Onset Date: 10/12/17 Current Visit: No Status: Chronic Qualifiers: Obesity type: due to excess calories Obesity classification: adult class 2 (BMI 35 - 39.9) Serious obesity comorbidity presence: with serious comorbidity Body mass index: BMI 35.0-35.9 Qualified Code(s): E66.01 - Morbid (severe) obesity due to excess calories; Z68.35 - Body mass index (BMI) 35.0-35.9, adult; Z68.35 - Body mass index (BMI) 35.0-35.9, adult Brief History of Present Illness: The patient is a 72-year-old male who was in his usual state of health with no significant past medical history, who comes in with shortness of breath. The patient states that for the past 5 days, he has been having difficulty breathing when he sleeps at night. He notes that he has swelling of his lower extremities. He needed to put a couple of pillows in order to help him breathe. He also had to sleep in a recliner in order to get continuous sleep. The patient does note getting up to use the restroom to urinate multiple times a night. The patient has not been diagnosed with any previous medical conditions, was recently established with Dr. Wright, and on the day of admission was in her office. Initial workup revealed that he was in atrial fibrillation with RVR, and therefore, he was transferred over to the ER. The patient's symptoms are constant, moderate, progressively worsening. He denies any chest pain, nausea, vomiting, fevers, chills, cough, sputum production, or gastroesophageal reflux symptoms. The patient's workup revealed a BNP of 707. Potassium and magnesium were low. Troponin was 0.04. His EKG showed AFib with RVR. rate in the 120s. His chest x-ray showed CHF. The patient was given aspirin and IV Lopressor. His potassium was replaced. The patient was then referred for admission. When the patient was seen in the ER, he was awake, alert, oriented x3, in some mild distress. Hospital Course: Overall during the hospital stay patient remained stable Patient was initially admitted to the hospital for shortness of breath and was found to have AFib with RVR and new onset CHF. Patient was started on Coreg 3.125 mg b.i.d. help lung with anticoagulation with Eliquis. For CHF patient remained on IV Lasix initially and was switched over to p.o. Lasix upon improvement in his symptoms. An echocardiogram was done which was consistent with 30- 35% ejection fraction with headache and left atrium. Patient was then referred for the cardiology stress test. The patient was unable to complete a cardiology stress test due to being anxious about the procedure and unable to lie down. Cardiology at that time recommended medical management and patient was continued on Coreg b.i.d. along with the Eliquis for treatment of atrial fibrillation. PO lasix for treatment of CHF. After 3 weeks of starting the medication patient will be referred for ablation if patient's still remains and AFib and hypotensive. Patient was to follow up with cardiology in about 1-2 days post discharge. Patient was educated extensively on atrial fibrillation and congestive heart failure and was given a dietary consult as well. Patient has hypertension for a long time which she was asked to monitor at home as well. Patient was asked to wait taking any other blood pressure medication well on Coreg and Lasix. Patient was asked to keep a blood pressure log and bring it to the cardiology appointment as well. Vital Signs/Physical Exam: Temp Pulse Resp BP Pulse Ox 97.6 F 90 18 111/70 100 10/13/17 04:00 10/13/17 10:20 10/13/17 04:00 10/13/17 11:59 10/13/17 04:00 General: Alert, In no apparent distress HEENT: Atraumatic, PERRLA, EOMI Neck: Supple, JVD not distended Respiratory: Clear to auscultation bilaterally, Normal air movement Cardiovascular: Regular rate/rhythm, Normal S1 S2 Gastrointestinal: Normal bowel sounds, No tenderness Musculoskeletal: No tenderness Integumentary: No rashes Neurological: Normal speech, Normal tone, Normal affect Lymphatics: No axilla or inguinal lymphadenopathy Laboratory Data at Discharge: WBC 7.6 K/uL (4.3-10.9) D 10/12/17 03:36 Hgb 12.8 g/dL (13.6-17.9) L 10/12/17 03:36 Hct 37.2 % (39.6-49.0) L 10/12/17 03:36 Plt Count 167 K/uL (152-406) 10/12/17 03:36 PT 13.3 SECONDS (9.5-12.5) H 10/09/17 11:54 INR 1.13 10/09/17 11:54 APTT 30.7 SECONDS (24.3-36.9) 10/09/17 11:54 Sodium 141 mEq/L (135-145) 10/13/17 04:57 Potassium 4.0 mEq/L (3.6-5.0) 10/13/17 04:57 BUN 35 mg/dL (6-20) H 10/13/17 04:57 Creatinine 1.09 mg/dL (0.61-1.24) 10/13/17 04:57 Glucose 89 mg/dL (65-120) 10/13/17 04:57 Magnesium 1.9 mg/dL (1.8-2.5) 10/10/17 05:32 Total Bilirubin 0.9 mg/dL (0.3-1.2) 10/12/17 03:36 AST 22 IU/L (10-42) 10/12/17 03:36 ALT 34 IU/L (10-60) 10/12/17 03:36 Alkaline Phosphatase 76 IU/L (42-121) 10/12/17 03:36 B-Natriuretic Peptide 707 pg/ml (<=100) H 10/09/17 11:54 Home Medications: Apixaban [Eliquis] 5 mg PO BID #60 tablet 10/13/17 Carvedilol [Coreg*] 3.125 mg PO BID 6AM 6PM #60 tab 10/13/17 Furosemide [Lasix*] 40 mg PO DAILY #30 tab 10/13/17 Lisinopril [Prinivil*] 5 mg PO DAILY #30 tab 10/13/17 New Medications: Apixaban [Eliquis] 5 mg PO BID #60 tablet Carvedilol [Coreg*] 3.125 mg PO BID 6AM 6PM #60 tab Furosemide [Lasix*] 40 mg PO DAILY #30 tab Lisinopril [Prinivil*] 5 mg PO DAILY #30 tab Patient Discharge Instructions: Please f/u with Dr eubanks on Thursday at 8.30AM. Please f/u with PCP in 1 to 2 weeks post discharge. New medication. Eliquis. Lasix. Coreg. Lisinopril Diet: Regular Activity: Ad davidson Followup: Maxim Eubanks MD [ACTIVE - CAN ADMIT] - 10/19/17 8:30 am Allison Wright DO [Primary Care Provider] -
[2017-10-13 15:56] VITALS: BP 80/62
--- NOTE | 2017-10-14 02:15 | PN ---
Date of Progress Note: 10/13/2017 Mr. Ulloa has been admitted with new onset atrial fibrillation and congestive heart failure. He is d oing fairly well from a CHF standpoint, remains in atrial fibrillation, gets hypotensive with his med ical regimen. He is presently on lisinopril 5 mg daily, Coreg 3.125 mg b.i.d., Xarelto, and Lasix 40 mg daily. The plan with Mr. Ulloa is for him to go home whenever it is okay with Dr. Garvin. I will see him in the office on Thursday next week at 8:30 in the morning, which will be I believe the ____ of October. Depending how he does, we will keep him on the Xarelto for about 3 weeks. Attempt di rect current cardioversion then. Hopefully, if he converts to normal rhythm, with his atrial fibrill ation his ejection fraction will improve. He will eventually need a stress test and repeat echocardi ography. DANELLE/SOLO Voice ID: [id number] Report ID: [id number]
== END 2017-10-13 16:21 | disposition home or self-care (01) | DRG 308 ==
LOC: ER 11:47 → ERHOLD 15:49 → 4TH 17:42
PROVIDERS: ADMIT Family Medicine; ATTEND Family Medicine
DX: I48.91 Unspecified atrial fibrillation (principal); I50.21 Acute systolic (congestive) heart failure; I11.0 Hypertensive heart disease with heart failure; E87.6 Hypokalemia; E83.42 Hypomagnesemia; I95.9 Hypotension, unspecified; E66.01 Morbid (severe) obesity due to excess calories; Z68.35 Body mass index [BMI] 35.0-35.9, adult; N40.0 Benign prostatic hyperplasia without lower urinary tract symptoms; Z85.828 Personal history of other malignant neoplasm of skin
CPT/HCPCS: 36415; 71045; 71046; 80048; 80053; 80061; 80076; 81003; 82306; 82550; 82553; 83036; 83735; 83880; 84132; 84153; 84443; 84484; 85025; 85610; 85730; 93005; 93306; 94760; 96365; 96372; 96375; 97163; 99285; J1650; J2785; J3475

== ENCOUNTER 2017-11-07 09:08 | Inpatient (IN) | payer MEDICARE ==
--- OUTSIDE RECORDS SUMMARY | 2017-11-07 09:10 | XMS REPORT ---
:1945 Author Organization [employer] Care Team Providers Name Role Phone Wright, Na Provider Role Unavailable Allergies, Adverse Reactions, Alerts Substance Reaction Event Type N.K.D.A. Info Not Available Non Drug Allergy Problems Problem Type Condition Code Onset Dates Condition Status Problem H/O asbestos exposure Z77.090 Active Problem Dyspnea on exertion R06.09 Active Problem Weakness R53.1 Active Problem Hospital discharge follow-up Z09 Active Assessment Chronic fatigue R53.82 Active Problem Hypertensive heart disease with I11.0 Active heart failure Problem Chronic a-fib I48.2 Active Problem Acute on chronic combined systolic I50.43 Active and diastolic congestive heart failure Problem Bilateral lower extremity edema R60.0 Active Problem Unspecified systolic (congestive) I50.20 Active heart failure Problem Chronic fatigue R53.82 Active Assessment Hypertensive heart disease with I11.0 Active heart failure Assessment Bilateral lower extremity edema R60.0 Active Assessment Weakness R53.1 Active Assessment Chronic a-fib I48.2 Active Problem Benign prostatic hyperplasia with N40.1 Active lower urinary tract symptoms Problem Obesity (BMI 35.0-39.9 without E66.9 Active comorbidity) Assessment Unspecified systolic (congestive) I50.20 Active heart failure Problem Skin lesion L98.9 Active Assessment Hospital discharge follow-up Z09 Active Problem Family history of coronary Z82.49 Active arteriosclerosis Medications Medication Code Code Instructions Start End Date Status Dosage System Date Eliquis ND 07606687633 5 MG Orally October 16, Active as directed twice daily 2017 Carvedilol ND 11234743830 3.125 MG Orally October 16, Active as directed 2017 Furosemide ND 46921925140 40 MG Orally Active 1 tablet Once a day Lisinopril ND [id number] 5 MG Orally Once October 16, Active 1 tablet a day 2018 Furosemide NDC [id number] 40 MG Orally October 16, Active 1 tablet Once a day 2018 Results No Known Results Summary Purpose [employer] Submission
--- OUTSIDE RECORDS SUMMARY | 2017-11-07 09:10 | XMS REPORT ---
:1945 Author Organization [employer] Care Team Providers Name Role Phone Wright, Na Provider Role Unavailable Allergies No Known Allergies Problems Problem Type Condition Code Onset Dates Condition Status Problem H/O asbestos exposure Z77.090 Active Problem Dyspnea on exertion R06.09 Active Problem Weakness R53.1 Active Problem Hospital discharge follow-up Z09 Active Problem Hypertensive heart disease with I11.0 Active heart failure Problem Chronic a-fib I48.2 Active Problem Acute on chronic combined systolic I50.43 Active and diastolic congestive heart failure Problem Bilateral lower extremity edema R60.0 Active Problem Unspecified systolic (congestive) I50.20 Active heart failure Problem Chronic fatigue R53.82 Active Problem Benign prostatic hyperplasia with N40.1 Active lower urinary tract symptoms Problem Obesity (BMI 35.0-39.9 without E66.9 Active comorbidity) Problem Skin lesion L98.9 Active Problem Family history of coronary Z82.49 Active arteriosclerosis Medications No Known Medications Results No Known Results Summary Purpose [email or web address] Submission
--- OUTSIDE RECORDS SUMMARY | 2017-11-07 09:10 | XMS REPORT ---
:1945 Author Organization [employer] Care Team Providers Name Role Phone Wright, Na Provider Role Unavailable Allergies, Adverse Reactions, Alerts Substance Reaction Event Type N.K.D.A. Info Not Available Non Drug Allergy Problems Problem Type Condition Code Onset Dates Condition Status Assessment Bilateral lower extremity edema R60.0 Active Problem Benign prostatic hyperplasia with N40.1 Active lower urinary tract symptoms Assessment Dyspnea on exertion R06.09 Active Problem Dyspnea on exertion R06.09 Active Problem Family history of coronary Z82.49 Active arteriosclerosis Problem Bilateral lower extremity edema R60.0 Active Problem H/O asbestos exposure Z77.090 Active Problem Obesity (BMI 35.0-39.9 without E66.9 Active comorbidity) Problem Weakness R53.1 Active Problem Skin lesion L98.9 Active Assessment Family history of coronary Z82.49 Active arteriosclerosis Assessment Benign prostatic hyperplasia with N40.1 Active lower urinary tract symptoms Assessment H/O asbestos exposure Z77.090 Active Assessment Family history of CHF (congestive Z82.49 Active heart failure) Assessment Weakness R53.1 Active Assessment Skin lesion L98.9 Active Assessment Obesity (BMI 35.0-39.9 without E66.9 Active comorbidity) Medications Medication Code System Code Instructions Start Date End Date Status Dosage Furosemide [facility] 2001 [id number] 40 MG Orally Once October 09, Active 1 tablet a day 2017 Results No Known Results Summary Purpose [employer] Submission
[2017-11-07] MEDS ORDERED: NITROGLYCERIN 1 GM PKT TD ONE (09:28)
[2017-11-07] MEDS ORDERED: FUROSEMIDE 100 MG/10 ML VIAL IV ONE (09:31)
[2017-11-07 09:45] LABS: Arterial Blood Carboxyhemoglob 1.5 % (0-1.5); Blood Gas Oxyhemoglobin 96.4 % (94-97); Blood O2 Saturation 98.5 % (92-98.5)
[2017-11-07 10:11] LABS: Potassium 2.8 mEq/L (3.6-5.0)
[2017-11-07 10:12] LABS: Albumin 2.9 g/dL (3.2-5.5); Bilirubin Direct 0.7 mg/dL (0-0.2); Bilirubin Total 1.8 mg/dL (0.3-1.2); Magnesium 1.7 mg/dL (1.8-2.5); Protein, Total 6.4 g/dL (6.0-8.3)
[2017-11-07 10:18] LABS: Absolute Lymphocytes (CBC) 0.3 K/uL (0.7-4.9); Absolute Monocytes 0.4 K/uL (0.1-1.3); Absolute Neutrophil 9.3 K/uL (1.8-8.0); Basophils % 0.3 % (0-1.3); Hematocrit 42.7 % (39.6-49.0); Lymphocytes % 3.2 % (15.3-44.8); MCH 29.4 pg (27.0-35.0); MCV 86.9 fL (80-100); MPV 10.2 fL (7.6-11.3); RBC Red Blood Cell Count 4.91 M/uL (4.33-5.43)
[2017-11-07] MEDS ORDERED: NA CHLORIDE 0.9% 250 ML ONE ×2 (10:25→22:55)
--- NOTE | 2017-11-07 10:28 | RAD REPORT ---
EXAM DESCRIPTION: Heath Single View11/07/2017 9:55 am CLINICAL HISTORY: sob COMPARISON: October 2017 FINDINGS: Bilateral pulmonary opacities are present with small pleural effusions. The heart is mode rately enlarged. Right basilar opacity probably represents atelectasis IMPRESSION: These findings probably represent CHF
[2017-11-07] MEDS ORDERED: RSI MEDICATION KIT IV ONE (10:38)
[2017-11-07] MEDS ORDERED: NOREPINEPHRINE 4mg/D5W 250mL 4 MG/250 ML BAG IV ONE ×3 (10:39→16:53)
[2017-11-07] MEDS ORDERED: PROPOFOL 1,000 MG/100 ML VIAL IV ONE (10:39)
[2017-11-07] MEDS ORDERED: MIDAZOLAM HCL 2 MG/2 ML INJ ONE (11:12)
[2017-11-07] MEDS ORDERED: DOPAMINE/D5W 400 MG/250 ML BAG IV ONE (11:36)
[2017-11-07] MEDS ORDERED: NA CHLORIDE 0.9% 500 ML ONE ×3 (11:36→20:56)
--- NOTE | 2017-11-07 12:05 | EDPHYS ---
Physician Documentation [facility] Name: Dannielle Ulloa Age: 72 yrs Sex: Male : 1945 Arrival Date: 11/07/2017 Time: 09:13 Bed 4 Private MD: ED Physician Eliecer Chung HPI: 11/07 09:16 This 72 yrs old Male presents to ER via Unassigned with complaints of sob, rn weakness, AMS. 09:16 The patient has shortness of breath at rest, with light activity. Onset: The rn symptoms/episode began/occurred 3 day(s) ago. Duration: The symptoms are continuous. The patient's shortness of breath is aggravated by exertion, light activity, supine position, talking, walking. Severity of symptoms: At their worst the symptoms were severe in the emergency department the symptoms have improved. The patient has experienced a previous episode. Family and EMS report 3 days of sob and slowly AMS, states has been having trouble breathing and moaning for 3 days, worse today, patient denies chest pain, able to assist EMS with walking but extremely sob. Denies chest pain.. Historical: - Allergies: 09:16 PENICILLINS; aa5 - Home Meds: 09:33 Lasix 40 mg Oral tab 1 tab 2 times per day [Active]; metolazone 10 mg oral tab once a aa5 day 1 hr prior to morning lasix [Active]; carvedilol 3.125 mg oral tab 2 times per day [Active]; Xarelto 20 mg oral tab once daily [Active]; Klor-Con powder daily [Active]; - PMHx: 09:16 Atrial Fib; Hypertension; CHF; aa5 - PSHx: 09:16 None; aa5 - Immunization history:: Adult Immunizations unknown. - Social history:: Smoking status: unknown. - Family history:: not pertinent. - Hospitalizations: : No recent hospitalization is reported. ROS: 09:16 Constitutional: Negative for fever, chills, and weight loss, Eyes: Negative for injury, rn pain, redness, and discharge, Neck: Negative for injury, pain, and swelling, Cardiovascular: + edema Respiratory: + sob Abdomen/GI: Negative for abdominal pain, nausea, vomiting, diarrhea, and constipation, MS/Extremity: Negative for injury and deformity, Skin: Negative for injury, rash, and discoloration, Neuro: + generalized weakness and confusion Exam: 09:16 Constitutional: Overweight male with moderate tachypnea, able to answer questions and rn follow commands. Head/Face: Normocephalic, atraumatic. Eyes: Pupils equal round and reactive to light, extra-ocular motions intact. Lids and lashes normal. Conjunctiva and sclera are non-icteric and not injected. Cornea within normal limits. Periorbital areas with no swelling, redness, or edema. ENT: dry MM, no stridor Neck: Trachea midline, no thyromegaly or masses palpated, and no cervical lymphadenopathy. Supple, full range of motion without nuchal rigidity, or vertebral point tenderness. No Meningismus. Cardiovascular: Irregular, no murmur, tachycardic Respiratory: + moderate tachypnea, + coarse bilateral breath sounds Abdomen/GI: protruberant abdomen, no tenderness MS/ Extremity: 3+ pitting edema that extends above knees, no evidence of cellulitis Neuro: Somnolent, awakens to voice, follows commands. Vital Signs: 09:14 Pulse 130; Resp 30 S; Temp 97.2(TE); Pulse Ox 99% on Non-rebreather mask; aa5 09:15 BP 159 / 134; aa5 09:40 BP 157 / 104; Pulse 114; Resp 34 S; Pulse Ox 99% on BiPAP; aa5 10:16 BP 53 / 28; Pulse 124; Resp 37; Pulse Ox 98% on BiPAP; aj 10:25 BP 68 / 59; Pulse 125; Resp 40; Pulse Ox 98% on BiPAP; aj 10:40 BP 84 / 68; Pulse 123; Resp 54; Pulse Ox 98% on BiPAP; Weight 113.4 kg; Height 6 ft. 0 aj in. (182.88 cm); 11:08 BP 120 / 90; Pulse 140; Resp 20 A; Pulse Ox 99% on ETT vent; aj 11:18 BP 86 / 68; Pulse 118; Resp 20; Pulse Ox 99% on ETT vent; aj 11:22 BP 80 / 67; Pulse 115; Resp 24; Pulse Ox 99% on ETT vent; aj 11:59 BP 117 / 61; Pulse 157; Resp 26; Pulse Ox 99% on ETT vent; aj 12:24 BP 119 / 102; Pulse 132; Resp 24; Pulse Ox 99% on ETT vent; aj 12:45 BP 154 / 99; Pulse 142 MON; Resp 21; Pulse Ox 100% on ETT vent; aj 12:45 BP 76 / 47; Pulse 128; Resp 27; Pulse Ox 98% on ETT vent; aj 12:53 BP 111 / 89; Pulse 125; Resp 26; Pulse Ox 100% on ETT vent; aj 13:32 BP 125 / 105; Pulse 159; Resp 23; Pulse Ox 98% on ETT vent; aj 13:42 BP 93 / 66; Pulse 149; Resp 24; Pulse Ox 96% on ETT vent; aj 14:39 BP 102 / 74; Pulse 137; Resp 26; Pulse Ox 94% on ETT vent; aj 15:13 BP 98 / 83; Pulse 132; Resp 24; Pulse Ox 94% on ETT vent; aj 15:35 Pulse 142; Resp 22; Temp 103.6(R); Pulse Ox 95% on ETT vent; aj 15:57 BP 98 / 69; Pulse 141; Resp 27; Temp 104.7(C); Pulse Ox 97% on ETT vent; aj 16:15 BP 102 / 84; Pulse 145; Resp 19; Temp 104.8(C); Pulse Ox 96% on ETT vent; aj 17:05 BP 89 / 74; Pulse 152; Resp 22; Temp 104.6(C); Pulse Ox 96% on ETT vent; aj 19:34 BP 100 / 64; Pulse 138; Resp 19; Temp 101.9(C); Pulse Ox 95% on R/A; aj 10:40 Body Mass Index 33.91 (113.40 kg, 182.88 cm) aj 12:45 A fib aj 12:45 Patient suctioned by respirtatory tech at this time aj 14:39 Patient suctioned aj 15:57 Ice packs applied to neck and groin aj 16:15 Ice packs applied to bilater axilla aj Procedures: 11:33 Intubation: Ventilated with 100% NRB prior to procedure. 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 Intubated orally using # 4 Yamel blade with 7.5 mm ETT. was successful on first attempt. Cricoid pressure applied during procedure. Tube secured with ETT webber at right side of mouth measured 23 cm at teeth. Placement verified by CO2 detector with (+) color change, auscultating bilateral breath sounds, O2 saturation after procedure was 93 %. Patient tolerated well. Central Line: the site was prepped with Betadine, in sterile fashion, a triple lumen catheter was inserted, in the right femoral vein, in 1 attempts. placement was verified, by blood return, the site was dressed with Tegaderm, using sterile technique, the patient tolerated the procedure, well. MDM: 09:13 Patient medically screened. rn 10:20 ED course: BP improved on nitro paste, subsequently, went too low, nitro paste rn canceled, and ns 250cc bolus ordered. Pt reports improvement of symptoms, ABG looks ok, following commands, protecting airway, low threshold for intubation although not yet indicated.. 10:42 ED course: Pt now with apneic periods, not safe to continue with Bipap. will intubate rn and admit to ICU. . 11:33 Differential diagnosis: CHF exacerbation, Myocardial Infarction pneumonia, Pneumothorax rn pulmonary edema. Data reviewed: vital signs, nurses notes, lab test result(s), EKG, radiologic studies, plain films, and as a result, I will admit patient. Counseling: I had a detailed discussion with the patient and/or guardian regarding: the historical points, exam findings, and any diagnostic results supporting the discharge/admit diagnosis, lab results, radiology results, the need for further work-up and treatment in the hospital. 12:03 ED course: Pt admitted to Dr. Garvin around 11:30. rn 14:12 ED course: Bedside ECHO does not reveal pericardial effusion.. rn 15:44 ED course: Pt now with fever, already got abx, no clear source, elevated LFTs maybe rn from congestive hepatopathy vs hepatic/gallbladder source, added u/s. . 16:51 ED course: U/S shows gallstones with mild thickening of wall, most likely due to rn hypoalbuminemia in this patient with hypoalbuminemia, patient declined abd pain/vomiting earlier when able to answer questions, and no pericholecystic fluid. . 11/07 09:14 Order name: CBC with Diff; Complete Time: 10:24 rn 11/07 09:14 Order name: Basic Metabolic Panel; Complete Time: 10:16 rn 11/07 09:14 Order name: BNP; Complete Time: 10:16 rn 11/07 09:14 Order name: LFT's; Complete Time: 10:16 rn 11/07 09:14 Order name: Magnesium; Complete Time: 10:16 rn 11/07 09:14 Order name: PT-INR; Complete Time: 10:24 rn 11/07 09:14 Order name: Ptt, Activated; Complete Time: 10:24 rn 11/07 09:14 Order name: Troponin (emerg Dept Use Only); Complete Time: 10:43 rn 11/07 09:14 Order name: Procalcitonin; Complete Time: 10:35 rn 11/07 09:14 Order name: Blood Culture Adult (2) rn 11/07 09:21 Order name: ABG; Complete Time: 10:08 eb 11/07 09:43 Order name: Lactate; Complete Time: 10:16 rn 11/07 11:20 Order name: Urine Culture rn 11/07 11:42 Order name: Urine Dipstick--Ancillary (enter results); Complete Time: 13:16 eb 11/07 09:14 Order name: XRAY Chest (1 view); Complete Time: 10:35 rn 11/07 09:14 Order name: BIPAP rn 11/07 10:43 Order name: CT Head Brain wo Cont rn 11/07 11:34 Order name: CXR XRAY; Complete Time: 13:16 ss 11/07 12:04 Order name: Lactate 11/07 13:35 Order name: CT; Complete Time: 15:44 EDMS 11/07 15:44 Order name: US Abdomen Limited rn 11/07 16:15 Order name: Comprehensive Metabolic Panel; Complete Time: 16:35 EDMS 11/07 16:33 Order name: US; Complete Time: 16:35 EDMS 11/07 16:49 Order name: Lactate Sepsis 2 HR Follow-up; Complete Time: 17:18 EDMS 11/07 17:31 Order name: Flu 11/07 18:00 Order name: Influenza Screen (A ; Complete Time: 10:36 EDMS 11/07 18:58 Order name: Lactic Dehydrogenase; Complete Time: 10:36 EDMS 11/07 19:00 Order name: Uric Acid; Complete Time: 10:36 EDMS 11/07 19:24 Order name: Ur Protein; Complete Time: 10:36 EDMS 11/07 20:29 Order name: US; Complete Time: 10:36 EDMS 11/07 09:14 Order name: EKG; Complete Time: 09:15 rn 11/07 09:14 Order name: Cardiac monitoring; Complete Time: 09:19 rn 11/07 09:14 Order name: EKG - Nurse/Tech; Complete Time: 09:19 rn 11/07 09:14 Order name: IV Saline Lock; Complete Time: 09:19 rn 11/07 09:14 Order name: Labs collected and sent; Complete Time: 09:19 rn 11/07 09:14 Order name: O2 Per Protocol; Complete Time: 09:20 rn 11/07 09:14 Order name: O2 Sat Monitoring; Complete Time: 09:20 rn 11/07 09:14 Order name: Cuello; Complete Time: 09:47 rn 11/07 11:20 Order name: Urine Dipstick-Ancillary (obtain specimen); Complete Time: 12:47 rn Administered Medications: 09:29 Drug: Nitro-Bid Ointment 2 % 1 inches Route: Transdermal; Site: anterior chest wall; ss 10:25 Follow up: Response: Blood pressure is lowered aj 10:30 Follow up: Response: Blood pressure is lowered; order to D/C nitro paste aj 09:40 Drug: Lasix 60 mg Route: IVP; Site: right forearm; ss 16:02 Follow up: Response: No change in condition aj 10:31 Drug: NS 0.9% 250 ml Route: IV; Rate: bolus; Site: right forearm; aj 16:01 Follow up: Response: No adverse reaction; IV Status: Completed infusion; IV Intake: aj 250ml 10:49 Drug: Etomidate 20 mg Route: IVP; Site: right forearm; aj 16:00 Follow up: Response: No adverse reaction aj 10:49 Drug: Succinylcholine 120 mg Route: IVP; Site: right forearm; aj 15:59 Follow up: Response: No adverse reaction aj 10:57 Drug: Levophed (4 mg/250 mL D5W 4 mcg/min Route: IV; Rate: calculated rate; Site: right aj femoral; 11:54 Follow up: Rate change 40 mcg/kg/min aj 12:20 Follow up: Rate change 45 mcg/min aj 20:44 Follow up: Response: Blood pressure is elevated; IV Status: Infusion continued upon aj admission; IV Intake: 750ml 10:57 Drug: Propofol 5 mcg/kg/min Route: IV; Rate: calculated rate; Site: right femoral; aj 11:25 Follow up: Propofol paused due to blood pressure decrease, provider notified aj 12:07 Follow up: Rate change 5 mcg/min aj 20:43 Follow up: Response: No adverse reaction; No change in condition; IV Status: Infusion aj continued upon admission 11:11 Drug: Versed 2 mg Route: IVP; Site: right femoral; aj 15:58 Follow up: Response: No adverse reaction aj 11:40 Drug: Dopamine drip 5 mcg/kg/min - (DOPamine 400 mg, D5W 250 ml) Route: IV; Rate: aj calculated rate; Site: right femoral; 11:51 Follow up: Rate change 4 calculated rate aj 11:55 Follow up: Rate change 4 mcg/min aj 20:43 Follow up: Response: Blood pressure is elevated; IV Status: Infusion continued upon aj admission 11:45 Drug: NS 0.9% 500 ml Route: IV; Rate: bolus; Site: right femoral; aj 15:59 Follow up: Response: No adverse reaction; IV Status: Completed infusion; IV Intake: aj 500ml 11:46 Not Given (Duplicate Order): NS 0.9% 500 ml IV at bolus once aj 12:23 Drug: Potassium Chloride 10 mEq Route: IV; Rate: calculated rate; Site: right femoral; aj 16:00 Follow up: Response: No adverse reaction; IV Status: Completed infusion; IV Intake: 50mlaj 12:23 Drug: Magnesium Sulfate 1 grams Route: IVPB; Infused Over: 1 hrs; Site: right femoral; aj 16:01 Follow up: Response: No adverse reaction; IV Status: Completed infusion; IV Intake: aj 100ml 12:23 Drug: LevaQUIN 750 mg Volume: 150 ml; Route: IVPB; Infused Over: 90 mins; Site: right aj forearm; 20:42 Follow up: IV Status: Completed infusion; IV Intake: 150ml aj 13:57 Drug: vancoMYCIN 1 grams Route: IVPB; Infused Over: 2 hrs; Site: right forearm; aj 15:59 Follow up: Response: No adverse reaction; IV Status: Completed infusion; IV Intake: aj 200ml 14:28 Drug: fentaNYL (PF) 25 mcg Route: IVP; Site: right forearm; aj 20:42 Follow up: Response: Pain is decreased aj 15:35 Drug: Tylenol Suppository 650 mg Route: VA; aj 20:41 Follow up: Response: Temperature is decreased aj 16:35 Drug: Tylenol Suppository 325 mg Route: VA; aj 20:41 Follow up: Response: Temperature is decreased aj 16:35 Drug: Aspirin Suppository 600 mg Route: VA; aj 20:40 Follow up: Response: Temperature is decreased aj Point of Care Testing: Blood Glucose: 09:14 Blood Glucose: 107 mg/dL; aa5 Ranges: Critical Glucose Levels:Adult <50 mg/dl or >400 mg/dl <40 mg/dl or >180 mg/dl Disposition: 11/07/17 12:04 Hospitalization ordered by Omid Garvin for Inpatient Admission. Preliminary diagnosis are Acute pulmonary edema, Acute kidney failure, Atrial fibrillation and flutter, Acute respiratory failure with hypoxia. - Bed requested for Intensive Care Unit. - Status is Inpatient Admission. aj - Condition is Serious. - Problem is new. - Symptoms are unchanged. UTI on Admission? No Signatures: Dispatcher [employer] EDMaria Shannon RN RN kl Myers, Amanda, RN RN aj Nieto, Roman, MD MD rn Calderon, Audri, RN RN aa5 Malissa Bourgeois RN RN ss Botello, Elizabeth eb Corrections: (The following items were deleted from the chart) 12:30 12:04 Hospitalization Ordered by Omid Garvin MD for Inpatient Admission. Preliminary eb diagnosis is Acute pulmonary edema; Acute kidney failure; Atrial fibrillation and flutter; Acute respiratory failure with hypoxia. Bed requested for Intensive Care Unit. Status is Inpatient Admission. Condition is Serious. Problem is new. Symptoms are unchanged. UTI on Admission? No. rn 12:38 12:30 11/07/2017 12:04 Hospitalization Ordered by Omid Garvin MD for Inpatient eb Admission. Preliminary diagnosis is Acute pulmonary edema; Acute kidney failure; Atrial fibrillation and flutter; Acute respiratory failure with hypoxia. Bed requested for Intensive Care Unit. Status is Inpatient Admission. Condition is Serious. Problem is new. Symptoms are unchanged. UTI on Admission? No. eb 15:49 12:38 11/07/2017 12:04 Hospitalization Ordered by Omid Garvin MD for Inpatient eb Admission. Preliminary diagnosis is Acute pulmonary edema; Acute kidney failure; Atrial fibrillation and flutter; Acute respiratory failure with hypoxia. Bed requested for Intensive Care Unit. Status is Inpatient Admission. Condition is Serious. Problem is new. Symptoms are unchanged. UTI on Admission? No. eb 15:50 15:49 11/07/2017 12:04 Hospitalization Ordered by Omid Garvin MD for Inpatient eb Admission. Preliminary diagnosis is Acute pulmonary edema; Acute kidney failure; Atrial fibrillation and flutter; Acute respiratory failure with hypoxia. Bed requested for Intensive Care Unit. Status is Inpatient Admission. Condition is Serious. Problem is new. Symptoms are unchanged. UTI on Admission? No. eb 15:50 15:50 11/07/2017 12:04 Hospitalization Ordered by Omid Garvin MD for Inpatient eb Admission. Preliminary diagnosis is Acute pulmonary edema; Acute kidney failure; Atrial fibrillation and flutter; Acute respiratory failure with hypoxia. Bed requested for [facility]. Status is Inpatient Admission. Condition is Serious. Problem is new. Symptoms are unchanged. UTI on Admission? No. eb 15:52 15:50 11/07/2017 12:04 Hospitalization Ordered by Omid Garvin MD for Inpatient eb Admission. Preliminary diagnosis is Acute pulmonary edema; Acute kidney failure; Atrial fibrillation and flutter; Acute respiratory failure with hypoxia. Bed requested for [facility]. Status is Inpatient Admission. Condition is Serious. Problem is new. Symptoms are unchanged. UTI on Admission? No. eb 19:23 15:52 11/07/2017 12:04 Hospitalization Ordered by Omid Garvin MD for Inpatient kl Admission. Preliminary diagnosis is Acute pulmonary edema; Acute kidney failure; Atrial fibrillation and flutter; Acute respiratory failure with hypoxia. Bed requested for [facility]. Status is Inpatient Admission. Condition is Serious. Problem is new. Symptoms are unchanged. UTI on Admission? No. eb 19:40 19:23 11/07/2017 12:04 Hospitalization Ordered by Omid Garvin MD for Inpatient aj Admission. Preliminary diagnosis is Acute pulmonary edema; Acute kidney failure; Atrial fibrillation and flutter; Acute respiratory failure with hypoxia. Bed requested for Intensive Care Unit. Status is Inpatient Admission. Condition is Serious. Problem is new. Symptoms are unchanged. UTI on Admission? No. kl 20:45 19:40 11/07/2017 12:04 Hospitalization Ordered by Omid Garvin MD for Inpatient aj Admission. Preliminary diagnosis is Acute pulmonary edema; Acute kidney failure; Atrial fibrillation and flutter; Acute respiratory failure with hypoxia. Bed requested for Intensive Care Unit. Status is Inpatient Admission. Condition is Serious. Problem is new. Symptoms are unchanged. UTI on Admission? No. aj
--- NOTE | 2017-11-07 12:05 | ER ---
Nurse's Notes [facility] Name: Dannielle Ulloa Age: 72 yrs Sex: Male : 1945 Arrival Date: 11/07/2017 Time: 09:13 Bed 4 Private MD: Diagnosis: Acute pulmonary edema;Acute kidney failure;Atrial fibrillation and flutter;Acute respiratory failure with hypoxia Presentation: 11/07 09:13 Presenting complaint: EMS states: AMS and SOB. EMS reports pt's O2 sat was 86% RA upon aa5 scene arrival. Initial Sepsis Screen: Does the patient meet any 2 criteria? RR > 20 per min. Altered Mental Status. HR > 90 bpm. Care prior to arrival: IV initiated. 18 GA, in the left antecubital area. 09:13 Acuity: PO 1 aa5 09:13 Transition of care: patient was not received from another setting of care. Onset of aa5 symptoms was November 2017. 09:13 Method Of Arrival: EMS aa5 20:40 Initial Sepsis Screen: Does the patient have a suspected source of infection? No. aj Patient's initial sepsis screen is negative. Historical: - Allergies: 09:16 PENICILLINS; aa5 - Home Meds: 09:33 Lasix 40 mg Oral tab 1 tab 2 times per day [Active]; metolazone 10 mg oral tab once a aa5 day 1 hr prior to morning lasix [Active]; carvedilol 3.125 mg oral tab 2 times per day [Active]; Xarelto 20 mg oral tab once daily [Active]; Klor-Con powder daily [Active]; - PMHx: 09:16 Atrial Fib; Hypertension; CHF; aa5 - PSHx: 09:16 None; aa5 - Immunization history:: Adult Immunizations unknown. - Social history:: Smoking status: unknown. - Family history:: not pertinent. - Hospitalizations: : No recent hospitalization is reported. Screenin:05 Abuse screen: Denies threats or abuse. Denies injuries from another. Nutritional aj screening: No deficits noted. Tuberculosis screening: No symptoms or risk factors identified. Fall Risk None identified. Assessment: 09:15 General: Appears uncomfortable, Behavior is cooperative. Pain: Denies pain. Neuro: aa5 Level of Consciousness is awake, obeys commands, Silk Folder are equal bilaterally Moves all extremities. Pupils are PERRL. Pt able to follow commands. Pt only answering yes or no questions at this time. . Cardiovascular: Heart tones S1 S2 present Edema 3+ pitting to mary lower extremities Rhythm is atrial fibrillation with rapid ventricular response. Respiratory: Reports shortness of breath Airway is patent Respiratory effort is labored, Respiratory pattern is tachypnea Breath sounds are coarse bilaterally. GI: Abdomen is obese, Bowel sounds present X 4 quads. : No signs and/or symptoms were reported regarding the genitourinary system. EENT: No signs and/or symptoms were reported regarding the EENT system. Derm: Skin is pink, warm \T\ dry. Bruising that is bright red, on right calf and right oliveros. Musculoskeletal: Range of motion: intact in all extremities. 09:20 Reassessment: RT at bedside placing pt on Bi-PAP per MD . aa5 09:40 Reassessment: Pt tolerating Bi-PAP well. . Respiratory: Respiratory effort is labored, aa5 Respiratory pattern is tachypnea. 10:05 General: Appears in no apparent distress. comfortable, Behavior is calm, cooperative, aj appropriate for age. Pain: Denies pain. Neuro: Level of Consciousness is awake, obeys commands, obtunded. Cardiovascular: Edema is 3+ to left midcalf, left ankle, right midcalf and right ankle. Respiratory: Reports shortness of breath Airway is patent Respiratory effort is even, labored, Respiratory pattern is tachypnea Breath sounds are coarse bilaterally. GI: Abdomen is non-distended, obese. Derm: Skin is intact, is healthy with good turgor, Skin is pink, warm \T\ dry. normal. 10:18 Reassessment: Patient's HOB lowered slightly and feet elevated. Nitro paste D/C'd as aj per provider order. NS 250 ml bolus administered. Patient is drowsy by responsive to voice. 10:40 Reassessment: Patient observed having apneic periods lasting 15-20 second approximately aj every 3-5 minutes, physician notified. 13:31 Reassessment: Patient appears in no apparent distress at this time. Patient remains aj intubated and appears comfortable in bed. Transported to [place] and back with no issues. 15:00 Reassessment: Patient appears in no apparent distress at this time. No changes from aj previously documented assessment. Patient and/or family updated on plan of care and expected duration. Pain level reassessed. 16:00 Reassessment: Patient appears in no apparent distress at this time. No changes from aj previously documented assessment. Patient and/or family updated on plan of care and expected duration. Pain level reassessed. 17:00 Reassessment: Patient appears in no apparent distress at this time. No changes from aj previously documented assessment. Patient and/or family updated on plan of care and expected duration. Pain level reassessed. Vital Signs: 09:14 Pulse 130; Resp 30 S; Temp 97.2(TE); Pulse Ox 99% on Non-rebreather mask; aa5 09:15 BP 159 / 134; aa5 09:40 BP 157 / 104; Pulse 114; Resp 34 S; Pulse Ox 99% on BiPAP; aa5 10:16 BP 53 / 28; Pulse 124; Resp 37; Pulse Ox 98% on BiPAP; aj 10:25 BP 68 / 59; Pulse 125; Resp 40; Pulse Ox 98% on BiPAP; aj 10:40 BP 84 / 68; Pulse 123; Resp 54; Pulse Ox 98% on BiPAP; Weight 113.4 kg; Height 6 ft. 0 aj in. (182.88 cm); 11:08 BP 120 / 90; Pulse 140; Resp 20 A; Pulse Ox 99% on ETT vent; aj 11:18 BP 86 / 68; Pulse 118; Resp 20; Pulse Ox 99% on ETT vent; aj 11:22 BP 80 / 67; Pulse 115; Resp 24; Pulse Ox 99% on ETT vent; aj 11:59 BP 117 / 61; Pulse 157; Resp 26; Pulse Ox 99% on ETT vent; aj 12:24 BP 119 / 102; Pulse 132; Resp 24; Pulse Ox 99% on ETT vent; aj 12:45 BP 154 / 99; Pulse 142 MON; Resp 21; Pulse Ox 100% on ETT vent; aj 12:45 BP 76 / 47; Pulse 128; Resp 27; Pulse Ox 98% on ETT vent; aj 12:53 BP 111 / 89; Pulse 125; Resp 26; Pulse Ox 100% on ETT vent; aj 13:32 BP 125 / 105; Pulse 159; Resp 23; Pulse Ox 98% on ETT vent; aj 13:42 BP 93 / 66; Pulse 149; Resp 24; Pulse Ox 96% on ETT vent; aj 14:39 BP 102 / 74; Pulse 137; Resp 26; Pulse Ox 94% on ETT vent; aj 15:13 BP 98 / 83; Pulse 132; Resp 24; Pulse Ox 94% on ETT vent; aj 15:35 Pulse 142; Resp 22; Temp 103.6(R); Pulse Ox 95% on ETT vent; aj 15:57 BP 98 / 69; Pulse 141; Resp 27; Temp 104.7(C); Pulse Ox 97% on ETT vent; aj 16:15 BP 102 / 84; Pulse 145; Resp 19; Temp 104.8(C); Pulse Ox 96% on ETT vent; aj 17:05 BP 89 / 74; Pulse 152; Resp 22; Temp 104.6(C); Pulse Ox 96% on ETT vent; aj 19:34 BP 100 / 64; Pulse 138; Resp 19; Temp 101.9(C); Pulse Ox 95% on R/A; aj 10:40 Body Mass Index 33.91 (113.40 kg, 182.88 cm) aj 12:45 A fib aj 12:45 Patient suctioned by respirtatory tech at this time aj 14:39 Patient suctioned aj 15:57 Ice packs applied to neck and groin aj 16:15 Ice packs applied to bilater axilla aj ED Course: 09:13 Patient arrived in ED. rn 09:13 Eliecer Chung MD is Attending Physician. rn 09:13 Arm band placed on. aa5 09:15 Patient has correct armband on for positive identification. Placed in gown. Bed in low aa5 position. Side rails up X2. Adult w/ patient. lambskin trimmer on. Pulse ox on. NIBP on. 09:19 Jojo Arzate, RN is Primary Nurse. aa5 09:22 Triage completed. aa5 09:26 Inserted saline lock: 20 gauge in right forearm, using aseptic technique. Blood ss collected. 09:40 Cuello cath inserted, using sterile technique, 18 Fr., by wi, balloon inflated, to aa5 gravity drainage. 09:53 XRAY Chest (1 view) In Process Unspecified. EDMS 09:59 Report given to EFRAÍN Field. aa5 10:05 Primary Nurse role handed off by Jojo Arzate RN aj 10:05 Martinez, Rashida, RN is Primary Nurse. aj 10:17 Notified ED physician of vital signs. aj 10:51 Assisted provider with intubation using 7.5 mm ETT via oral route. ET tube secured at aj 23cm at the teeth. Set up intubation tray. Intubated by Eliecer Chung MD Placement verified by CXR, CO2 detector w/ + color change, auscultating bilateral breath sounds, Patient tolerated well. 10:59 Note: pt not ready \T\ this time, doing a procedure. bq 11:08 Assisted provider with central line placement. Set up central line tray. Triple lumen aj line placed in right femoral. Line placed by Eliecer Chung MD Placement verified by blood return, Dressed with Tegaderm, Patient tolerated well. 11:43 CXR XRAY In Process Unspecified. EDMS 12:04 Omid Garvin MD is Hospitalizing Provider. rn 13:25 CT completed. Patient moved back from CT. bq 15:36 Notified ED physician of vital signs. aj 15:59 Ultrasound completed. Patient tolerated well. Notified ED Physician adri. sg3 16:13 Notified ED physician of vital signs. aj 16:14 Oral gastric tube placed, 16 georgian to low intermittent suction. Positive auscultation aj with gastric contents noted during suction. 19:39 Report given to Kristine Kunz RN. aj 20:20 Ultrasound completed. Other: pt unable to move for u/s- nurse assisted . sg3 20:40 Patient admitted, IV remains in place. intact. aj Administered Medications: 09:29 Drug: Nitro-Bid Ointment 2 % 1 inches Route: Transdermal; Site: anterior chest wall; ss 10:25 Follow up: Response: Blood pressure is lowered aj 10:30 Follow up: Response: Blood pressure is lowered; order to D/C nitro paste aj 09:40 Drug: Lasix 60 mg Route: IVP; Site: right forearm; ss 16:02 Follow up: Response: No change in condition aj 10:31 Drug: NS 0.9% 250 ml Route: IV; Rate: bolus; Site: right forearm; aj 16:01 Follow up: Response: No adverse reaction; IV Status: Completed infusion; IV Intake: aj 250ml 10:49 Drug: Etomidate 20 mg Route: IVP; Site: right forearm; aj 16:00 Follow up: Response: No adverse reaction aj 10:49 Drug: Succinylcholine 120 mg Route: IVP; Site: right forearm; aj 15:59 Follow up: Response: No adverse reaction aj 10:57 Drug: Levophed (4 mg/250 mL D5W 4 mcg/min Route: IV; Rate: calculated rate; Site: right aj femoral; 11:54 Follow up: Rate change 40 mcg/kg/min aj 12:20 Follow up: Rate change 45 mcg/min aj 20:44 Follow up: Response: Blood pressure is elevated; IV Status: Infusion continued upon aj admission; IV Intake: 750ml 10:57 Drug: Propofol 5 mcg/kg/min Route: IV; Rate: calculated rate; Site: right femoral; aj 11:25 Follow up: Propofol paused due to blood pressure decrease, provider notified aj 12:07 Follow up: Rate change 5 mcg/min aj 20:43 Follow up: Response: No adverse reaction; No change in condition; IV Status: Infusion aj continued upon admission 11:11 Drug: Versed 2 mg Route: IVP; Site: right femoral; aj 15:58 Follow up: Response: No adverse reaction aj 11:40 Drug: Dopamine drip 5 mcg/kg/min - (DOPamine 400 mg, D5W 250 ml) Route: IV; Rate: aj calculated rate; Site: right femoral; 11:51 Follow up: Rate change 4 calculated rate aj 11:55 Follow up: Rate change 4 mcg/min aj 20:43 Follow up: Response: Blood pressure is elevated; IV Status: Infusion continued upon admission 11:45 Drug: NS 0.9% 500 ml Route: IV; Rate: bolus; Site: right femoral; aj 15:59 Follow up: Response: No adverse reaction; IV Status: Completed infusion; IV Intake: aj 500ml 11:46 Not Given (Duplicate Order): NS 0.9% 500 ml IV at bolus once aj 12:23 Drug: Potassium Chloride 10 mEq Route: IV; Rate: calculated rate; Site: right femoral; aj 16:00 Follow up: Response: No adverse reaction; IV Status: Completed infusion; IV Intake: 50mlaj 12:23 Drug: Magnesium Sulfate 1 grams Route: IVPB; Infused Over: 1 hrs; Site: right femoral; aj 16:01 Follow up: Response: No adverse reaction; IV Status: Completed infusion; IV Intake: aj 100ml 12:23 Drug: LevaQUIN 750 mg Volume: 150 ml; Route: IVPB; Infused Over: 90 mins; Site: right aj forearm; 20:42 Follow up: IV Status: Completed infusion; IV Intake: 150ml aj 13:57 Drug: vancoMYCIN 1 grams Route: IVPB; Infused Over: 2 hrs; Site: right forearm; aj 15:59 Follow up: Response: No adverse reaction; IV Status: Completed infusion; IV Intake: aj 200ml 14:28 Drug: fentaNYL (PF) 25 mcg Route: IVP; Site: right forearm; aj 20:42 Follow up: Response: Pain is decreased aj 15:35 Drug: Tylenol Suppository 650 mg Route: VT; aj 20:41 Follow up: Response: Temperature is decreased aj 16:35 Drug: Tylenol Suppository 325 mg Route: VT; aj 20:41 Follow up: Response: Temperature is decreased aj 16:35 Drug: Aspirin Suppository 600 mg Route: VT; aj 20:40 Follow up: Response: Temperature is decreased aj Point of Care Testing: Blood Glucose: 09:14 Blood Glucose: 107 mg/dL; aa5 Ranges: Intake: 15:59 IV: 200ml; Total: 200ml. aj 15:59 IV: 500ml; Total: 700ml. aj 16:00 IV: 50ml; Total: 750ml. aj 16:01 IV: 100ml; Total: 850ml. aj 16:01 IV: 250ml; Total: 1100ml. aj 20:42 IV: 150ml; Total: 1250ml. aj 20:44 IV: 750ml; Total: 2000ml. aj Output: 15:14 Urine: 100ml (Cuello); Total: 100ml. aj Outcome: 10:30 Critical Care visit due to shock. aj 12:04 Decision to Hospitalize by Provider. rn 17:00 Admitted to ER Hold. Please see [facility] for further documentation. aj 20:40 critical aj 20:45 Patient left the ED. aj Signatures: Dispatcher [employer] EDMS Rashida Martinez RN RN Judie John Roman, MD MD rn Calderon, Audri, RN RN aa5 Malissa Bourgeois RN RN ss Godinez, Sarah sg3 Corrections: (The following items were deleted from the chart) 10:32 10:32 Notified ED physician of vital signs. aj aj 11:32 10:40 BP 84 / 68; Pulse 123bpm; Resp 54bpm; Pulse Ox 98% BiPAP; aj aj 12:23 12:22 LevaQUIN 750 mg 150 ml IVPB in right femoral over 90 mins 150 ml aj aj 17:06 17:05 BP 89 / 74; Pulse 152bpm; Resp 22bpm; Pulse Ox 96% ET / Ventilator; aj aj 20:38 10:05 Neuro: Level of Consciousness is awake, alert, obeys commands, Oriented to aj person, place, time, situation, aj 20:38 Reassessment: Patient appears in no apparent distress at this time. No changes aj from previously documented assessment. Patient and/or family updated on plan of care and expected duration. Pain level reassessed. aj 18:00 Reassessment: Patient appears in no apparent distress at this time. No changes aj from previously documented assessment. Patient and/or family updated on plan of care and expected duration. Pain level reassessed. aj
[2017-11-07 12:09] LABS: Urine Blood NEGATIVE (NEG); Urine Glucose NEGATIVE (NEG); Urine Protein 2+ (NEG)
[2017-11-07] MEDS ORDERED: KCL 20 MEQ/100 mL IVPB 20 MEQ/100 ML BAG IV ONE ×2 (12:11→17:16)
[2017-11-07] MEDS ORDERED: ONDANSETRON 4 MG/2 ML VIAL IV PRN (12:25)
--- NOTE | 2017-11-07 12:30 | RAD REPORT ---
EXAM DESCRIPTION: Heath Single View11/07/2017 11:47 am CLINICAL HISTORY: Shortness of breath COMPARISON: November 07 chest x-ray FINDINGS: An endotracheal tube is been inserted with its tip well above the jesus. No change has occurred in bilateral pulmonary opacities and right pleural effusion. The heart remains enlarged IMPRESSION: Placement of an endotracheal tube with its tip several centimeters above the jesus
--- NOTE | 2017-11-07 13:35 | RAD REPORT ---
EXAM DESCRIPTION: CT - Head Brain Wo Cont - 11/07/2017 1:25 pm CLINICAL HISTORY: Alteration of consciousness/confusion COMPARISON: None. TECHNIQUE: Computed axial tomography of the head was obtained. IV contrast was not requested. All CT scans are performed using dose optimization technique as appropriate and may include automated exposure control or mA/KV adjustment according to patient size. FINDINGS: An intracranial bleed is not seen . The ventricles are normal in caliber. No extra-axial fluid collection is noted. Fluid within the sinuses/ mastoids is not seen. IMPRESSION: No acute intracranial abnormality is seen. If patient's symptoms persist MRI of the bra in would be recommended.
[2017-11-07] MEDS ORDERED: VANCOMYCIN/NS 1 gm 1 GM/250 ML BAG ONE (13:52)
[2017-11-07] MEDS ORDERED: FENTANYL CITR 100 MCG/2 ML ONE (14:25)
[2017-11-07] MEDS ORDERED: NOREPINEPHRINE 4 MG in D5W 250 ML IV PRN (14:39)
[2017-11-07] MEDS ORDERED: ACETAMINOPHEN 650MG/RECT SUPP PR ONE (15:31)
[2017-11-07 16:15] LABS: Albumin 2.7 g/dL (3.2-5.5); Bilirubin Total 1.9 mg/dL (0.3-1.2)
[2017-11-07 16:22] LABS: Potassium 2.8 mEq/L (3.6-5.0)
[2017-11-07] MEDS ORDERED: ACETAMINOPHEN 325 MG/SUPP PR ONE (16:30)
[2017-11-07] MEDS ORDERED: ASPIRIN 600 MG/SUPP PR ONE (16:30)
--- NOTE | 2017-11-07 16:33 | RAD REPORT ---
EXAM DESCRIPTION: US - Abdomen Exam Limited - 11/07/2017 4:27 pm CLINICAL HISTORY: Abdominal pain. Elevated liver enzyme COMPARISON: None. FINDINGS: Gallstones are present. The gallbladder wall is mildly thickened. The biliary tree is normal caliber. IMPRESSION: Cholelithiasis. Mildly thickened gallbladder wall may represent cholecystitis or be seco ndary to hypoalbuminemia
[2017-11-07] MEDS: FUROSEMIDE 20 MG/ 2ML VIAL IV SCH (17:00)
[2017-11-07] MEDS ORDERED: ENOXAPARIN 30 MG/0.3 ML SQ SCH (17:00)
[2017-11-07] MEDS ORDERED: CEFEPIME/SWI 1gm 1 GM/10 ML SYR IVP SCH (17:00)
[2017-11-07] MEDS ORDERED: MAGNESIUM SULFATE 1 gm IVPB 1 GM/100 ML BAG IV ONE ×2 (17:12→17:16)
[2017-11-07] MEDS ORDERED: FUROSEMIDE 20 MG/ 2ML VIAL ONE (17:16)
[2017-11-07] MEDS: Meropenem 1,000 MG in NA CHLORIDE 0.9% 100 ML IV SCH (18:00)
[2017-11-07] MEDS ORDERED: KCL 20 MEQ/100 mL IVPB 20 MEQ/100 ML BAG IV SCH (18:00)
[2017-11-07] MEDS ORDERED: NA CHLORIDE 0.9% 1,000 ML IV SCH (18:00)
[2017-11-07] MEDS: NOREPINEPHRINE 8 MG in Dextrose 5%-Water 500 ML IV PRN ×3 (18:40→23:47)
[2017-11-07 19:23] LABS: UR CREAT 192.1 mg/dL; Urine Protein/Creatinine Ratio 0.77 (<0.15)
--- NOTE | 2017-11-07 20:28 | RAD REPORT ---
EXAM DESCRIPTION: US - Renal Ultrasound-Complete - 11/07/2017 8:19 pm CLINICAL HISTORY: . Acute renal failure COMPARISON: None. FINDINGS: The right kidney measures 13 cm with a normal echotexture. The left kidney measures 11 cm with a normal echotexture. Hydronephrosis is not seen. Minimal amount of ascites surrounds the spleen IMPRESSION: Unremarkable renal ultrasound.
[2017-11-07] MEDS: CARVEDILOL 6.25 MG TAB PO SCH (21:00)
[2017-11-07] MEDS ORDERED: NA CHLORIDE 0.9% 500 ML IV ONE (21:00)
[2017-11-07] MEDS ORDERED: HALOPERIDOL LACT 5 MG/ML INJ IV PRN (21:19)
[2017-11-07] MEDS ORDERED: MIDAZOLAM HCL 2 MG/2 ML INJ IV PRN (21:19)
[2017-11-07] MEDS ORDERED: LORazepam 2 MG/ML VIAL IV PRN (21:19)
[2017-11-07] MEDS ORDERED: FENTANYL CITR 100 MCG/2 ML IV PRN (21:19)
[2017-11-07] MEDS: ACETAMINOPHEN 650MG/RECT SUPP PR PRN (21:26)
[2017-11-07] MEDS ORDERED: VASOPRESSIN 80 UNIT in NA CHLORIDE 0.9% 250 ML IV PRN (21:50)
[2017-11-07 22:47] LABS: Arterial Blood Carboxyhemoglob 1.2 % (0-1.5); Blood Gas Oxyhemoglobin 97.6 % (94-97); Blood O2 Saturation 99.2 % (92-98.5)
[2017-11-07] MEDS ORDERED: NOREPINEPHRINE 4 MG/4 ML VIAL ONE (23:44)
--- NOTE | 2017-11-07 23:54 | HP ---
Date of Admission: 11/07/2017 Consultants: Dr. Ceja. Primary Care Physician: None listed. Code Status: Full. History Of Present Illness: History is limited due to patient's medical condition; he is intubated, sedated, largely obtained from ER physician staff. No family at the bedside. was available to give history to the ER staff. The patient is a 72-year-old male with past medical history of atrial fibrillation, acute CHF, systolic dysfunction, history of basal cell carcinoma, obesity, who was admitted recently on 10/09/2017, with atrial fibrillation with RVR. The patient, of note, does not believe in traditional medicine, is very much involved with taking supplements, not taking medications as prescribed and believes in holistic and alternative medicine. That being said, the patient was recently discharged after he was admitted to the hospital for atrial fibrillation and congestive heart failure. He was started on several new medications including Eliquis, Coreg, Lasix, lisinopril, unclear if the patient has been taking these medications from my previous visit with him last month. He did not specifically believe in the effects of these medications. The patient was brought into the hospital for altered mental status. He was short of breath, had been coughing, but no fevers or chills according to the . The patient was found to have elevated heart rate in the 140s. He was in atrial fibrillation with RVR. His blood pressure was elevated in the 200s. The patient was started on BiPAP, was given some Nitropaste. He improved, however, his blood pressure started deteriorating, went down to the 50s systolic , came up with 250 mL bolus to 75, and then was started on pressors and currently at 90/70. His workup revealed troponin of 0.05. His urine was negative. ABG showed pH is 7.55, pCO2 of 28, bicarb 25, pO2 107. His INR was 4. His WBC count was normal. His imaging studies including chest x-ray showed bilateral pulmonary opacities and right pleural effusion. The patient also had CT scan which was negative. The patient was subsequently intubated in the ER and then referred for admission. When the patient was seen in the ER, he was intubated, sedated, however, was somewhat agitated. The patient was on multiple pressors. Past Medical History: History of basal cell cancer never treated; atrial fibrillation, on anticoagulation; congestive heart failure; systolic dysfunction ; obesity; history of basal cell cancer. Past Surgical History: None. Allergies: TO PENICILLIN A CHILD. UNKNOWN REACTION. Medications: Reviewed. Social History: The patient has no history of alcohol use or illicit drug use, was a former smoker. Family History: Father of heart attack. Mother had stroke. Father also had CHF. Review of Systems: Limited due to patient's medical condition. Physical Examination: Vital signs: Temperature 97.2, heart rate 130, respirations 30, O2 99% on ET tube. General: Intubated, sedated, somewhat agitated, morbidly obese, ill-appearing male. HEENT: Normocephalic, atraumatic. PERRLA. ET tube in place. CV: S1, S2. Sinus tachycardia. Peripheral pulses present bilaterally. Respiratory: Diminished breath sounds. Some crackles heard. No wheezing. The patient is slightly tachypneic. No use of accessory muscles. Gastrointestinal: Abdomen is soft, nondistended. Positive bowel sounds. No palpable masses. Extremities: No clubbing, cyanosis. 2+ edema, bilateral lower extremities. No calf swelling. Neuro: Intubated, sedated. The patient did open eyes spontaneously, somewhat agitated. Moves all 4 extremities. Does not follow commands. Skin: The patient has some mild erythema on his lower extremity, likely consistent with chronic venous stasis. The patient has lesions on his face consistent with basal cell. Laboratory Data: WBC 10.1, H and H 14.4, 42.7, platelets 115. INR 4. ABG, pH 7.55, pCO2 28.7, pO2 107, bicarb 25.2, sodium 134, potassium 2.8, chloride 91, CO2 29, BUN 52, creatinine 3.52, baseline was normal. Glucose 110 , lactate 30.4, calcium 8.4, magnesium 1.7, total bilirubin 1.8, AST 262, ALT 178. Baseline normal. Troponin 0.59. BNP 1397. Albumin 2.9. Procalcitonin 34.6. UA: Negative, 2+ protein. Chest x-ray shows bilateral pulmonary opacities and right pleural effusion. Heart remains enlarged. CT scan of the head shows no acute intracranial abnormality. Assessment And Plan: A 72-year-old male with. 1. Acute respiratory failure, likely secondary to congestive heart failure. 2. Atrial fibrillation with rapid ventricular response, now in sinus rhythm with tachycardia. We will continue with rate control. On chronic anti- coagulation however per has not been taking it consistently. 3. Sepsis. Elevated lactate at 30. Procalcitonin elevated at 34. White count is normal. Source of infection unclear. May be related to pulmonary. 4. Hypotensive shock, possibly cardiogenic shock. The patient is on 2 pressors. Blood pressure, will try to keep MAP above 65. 5. Elevated troponin 0.59, likely demand ischemia. We will consult Cardiology. 6. Acute congestive heart failure exacerbations, systolic dysfunction. Echocardiogram done recently showed EF of 35%-39%. 7. Hypomagnesemia. We will replace and monitor. 8. Acute kidney injury. Creatinine elevated to 3.5, likely from prerenal azotemia. We will continue with some gentle IV fluid hydration. We will consult Nephrology. 9. Hypokalemia, replace and monitor. 10. Elevated liver enzymes, likely secondary to shock. 11. Gastrointestinal and deep venous thrombosis prophylaxis, PPI. No chemical anticoagulation. INR is 4 at this time. Plan: Admit the patient to ICU, place as inpatient. We will consult Dr. Ceja with Pulmonology for ventilation management. Follow up with Cardiology , Nephrology recommendations, overall poor prognosis. /SOLO Voice ID: [id number] MTDD
[2017-11-08] MEDS ORDERED: PROPOFOL 1,000 MG/100 ML VIAL IV PRN
[2017-11-08] MEDS ORDERED: Phenylephrine HCl 10 MG/ML 1 ML VIAL ONE ×2 (00:14→05:24)
[2017-11-08] MEDS ORDERED: NA CHLORIDE 0.9% 250 ML ONE ×2 (00:14→05:25)
[2017-11-08 00:58] LABS: Potassium 3.1 mEq/L (3.6-5.0)
[2017-11-08] MEDS ORDERED: D5W 250 ML IV ONE ×2 (01:43→04:29)
[2017-11-08] MEDS ORDERED: NOREPINEPHRINE 4mg/D5W 250mL 4 MG/250 ML BAG IV ONE ×2 (01:43→01:54)
[2017-11-08] MEDS ORDERED: KCL 20 MEQ/100 mL IVPB 20 MEQ/100 ML BAG IV SCH (02:00)
[2017-11-08] MEDS: ACETAMINOPHEN 650MG/RECT SUPP PR PRN (02:47)
[2017-11-08] MEDS ORDERED: NOREPINEPHRINE 4 MG/4 ML VIAL ONE (04:28)
[2017-11-08] MEDS ORDERED: [UNRECOGNIZED DRUG - OTHER] IV ONE (04:42)
[2017-11-08] MEDS ORDERED: NOREPINEPHRINE IV ONE (04:42)
[2017-11-08 04:44] VITALS: O2SAT 96
[2017-11-08 05:41] LABS: Arterial Blood Carboxyhemoglob 0.7 % (0-1.5); Blood Gas Oxyhemoglobin 96.8 % (94-97); Blood O2 Saturation 97.9 % (92-98.5)
--- NOTE | 2017-11-08 05:49 | EKG ---
Test Date: 2017-11-07 Test Time: 09:14:00 Delivery Clerk: JOHNY MEASUREMENT RESULTS: Intervals: Rate: 130 MS: QRSD: 188 QT: 336 QTc: 494 Topmost: P: MS: QRS: 258 T: 26 INTERPRETIVE STATEMENTS: Atrial fibrillation with rapid ventricular response Right bundle branch block Abnormal ECG Compared to ECG 10/09/2017 11:30:52 no significant change from previous ECG Electronically Signed On 11-08-17 05:48:50 CDT by Jean Connell
[2017-11-08 06:36] LABS: Absolute Monocytes 0.4 K/uL (0.1-1.3); Absolute Neutrophil 11.7 K/uL (1.8-8.0); Basophils % 0.2 % (0-1.3); Eosinophils % 0.3 % (0-4.4); Hematocrit 45.6 % (39.6-49.0); Lymphocytes % 7.6 % (15.3-44.8); MCH 29.1 pg (27.0-35.0); MCV 90.5 fL (80-100); MPV 10.8 fL (7.6-11.3); Monocytes % 2.9 % (3.3-12.3); RBC Red Blood Cell Count 5.04 M/uL (4.33-5.43)
[2017-11-08 07:26] LABS: Albumin 1.9 g/dL (3.2-5.5); Bilirubin Total 2.8 mg/dL (0.3-1.2); Magnesium 2.1 mg/dL (1.8-2.5); Phosphorus 7.7 mg/dL (2.5-4.3); Potassium 3.7 mEq/L (3.6-5.0); Protein, Total 4.6 g/dL (6.0-8.3)
[2017-11-08 07:31] LABS: Urine White Blood Cell Casts DIFF
[2017-11-08 07:32] LABS: Platelet Estimate DECR; Platelets, Giant FEW
[2017-11-08] MEDS: NOREPINEPHRINE 8 MG in Dextrose 5%-Water 500 ML IV PRN ×3 (07:32→12:09)
[2017-11-08 07:33] LABS: Blood Morphology Comment NOTED (NOT SEEN); Burr Cells FEW
[2017-11-08] MEDS: FUROSEMIDE 20 MG/ 2ML VIAL IV SCH (08:09)
[2017-11-08] MEDS: CARVEDILOL 6.25 MG TAB PO SCH (08:09)
[2017-11-08] MEDS: Meropenem 1,000 MG in NA CHLORIDE 0.9% 100 ML IV SCH (08:35)
[2017-11-08 08:43] LABS: Protime INR 5.05
[2017-11-08] MEDS ORDERED: FAMOTIDINE 20 MG/2 ML VIAL IV SCH (09:00)
[2017-11-08] MEDS ORDERED: CEFEPIME 1 GM/VIAL IV SCH (09:00)
[2017-11-08 10:23] VITALS: BMI 35.8
--- NOTE | 2017-11-08 10:27 | P.PN ---
Date of Service: 11/08/17 at the bedside. Treatment plan explained and all questions answered. She is aware of the poor prognosis and imminent of the patient who is in sepsis w multi-organ failure, maxed on pressors appearing mottled and cold. Her sons are on the way from [place]. She wishes to make him DNR. They understand that he may prior to their arrival. does not want any CPR or ACLS meds. DNR Continue active care
[2017-11-08 10:30] VITALS: TEMP 99.2
[2017-11-08] MEDS ORDERED: NA CHLORIDE 0.9% 250 ML IV SCH (11:00)
[2017-11-08] MEDS ORDERED: ALBUMIN HUMAN 25% 100 ML IV ONE (12:04)
--- NOTE | 2017-11-08 12:04 | RAD REPORT ---
EXAM DESCRIPTION: VAS - Extremity Venous Uni Ltd - 11/08/2017 9:43 am CLINICAL HISTORY: Leg swelling and edema. COMPARISON: None. FINDINGS: Right lower extremity venous system was interrogated with Doppler technique. Normal flow, compressibility and augmentation was noted. There is no DVT present.Mildly prominent right groin lymp h node measuring 3 cm noted. IMPRESSION: No evidence of right lower extremity deep venous thrombosis.
[2017-11-08] MEDS ORDERED: NA CHLORIDE 0.9% 250 ML IV PRN (12:06)
[2017-11-08] MEDS ORDERED: SUCCINYLCHOLINE 20 MG/ML (10 ML) IV ONE (12:39)
[2017-11-08] MEDS ORDERED: LIDOCAINE 2% MPF 5 ML VIAL IJ ONE (12:39)
[2017-11-08] MEDS ORDERED: HYDROCORTISONE SUC 100 MG INJ IV SCH (13:00)
[2017-11-08] MEDS ORDERED: ALBUMIN HUMAN 25% 100 ML IV SCH (13:00)
[2017-11-08] MEDS ORDERED: NA CHLORIDE 0.9% 1,000 ML IV SCH (13:00)
--- NOTE | 2017-11-08 13:37 | PN ---
Date of Progress Note: 11/08/2017 Subjective: The patient seen and examined. Chart reviewed and case discussed with RN. The patient has deteriorated overnight, has maxed out on multiple pressors, but not sedated. Blood pressure not holding. at the bedside. The patient appears mottled, nonresponsive, off sedation, awaiting his son to arrive from [place]. I explained to the that the patient has an overall poor prognosis and will likely not survive this hospitalization. She voiced understanding. Review of Systems: Limited due to patient's medical condition. Medications: Reviewed. Physical Examination: Vital Signs: Temperature 99.6, heart rate 137, blood pressure 91/56, respirations 40, O2 90% on 100% ET tube, FiO2. General: Non-responsive, intubated, not sedated, ill-appearing with mottled skin and appears cold. CV: S1, S2. Irregularly irregular, rapid rate. Peripheral pulses weak bilaterally. Respiratory: Diminished breath sounds. No wheezing. Gastrointestinal: Abdomen is soft, nondistended. Positive bowel sounds. No guarding or rigidity. Extremities: No clubbing or cyanosis. The patient does have edema, bilateral lower extremities. Skin: Multiple excoriations. Does have some erythema and swelling of the right lower extremity. Neuro: Intubated, not sedated. Does not follow any commands. Does not respond to pain. Laboratory Data: Sodium 124, potassium 3.7, chloride 91, CO2 15, BUN 54, creatinine 4.14, glucose 279, calcium 6.3, phosphorus 7.7, magnesium 2.1, AST 432, ALT 281, alkaline phosphatase 115, albumin 1.9. ABG; pH 7.3, pCO2 22, PO2 125, bicarb 10.6. WBC 13.1, H and H 14.7, 45.6, platelets 98, neutrophils 89%, bands 10. Blood cultures, prelim shows beta-hemolytic strep group B, gram- positive cocci in pairs and chains. Assessment And Plan: A 72-year-old male with: 1. Hypotensive shock. 2. Acute respiratory failure. w hypoxia 3. Atrial fibrillation with rapid ventricular response. 4. Sepsis. 5. Elevated troponin. 6. Multi organ dysfunction. 7. Acute congestive heart failure exacerbation, systolic dysfunction. 8. Hypomagnesemia. 9. Hyponatremia. 10. Acute kidney injury. 11. Hyperphosphatemia. 12. Hypocalcemia. 13. Acute metabolic encephalopathy. The patient has a very poor prognosis overall, likely will not survive this hospitalization. Skin appears mottled, cold, nonresponsive but may code again. wants to do everything possible at least until her son arrive from [place]. We will discuss with consultants. The patient overall has a very poor prognosis, is on 3 pressors, non-responsive. /SOLO Voice ID: [id number] Report ID: [id number] [facility]ITALM[facility]
--- NOTE | 2017-11-08 13:46 | CON ---
Chief Complaint: Unresponsive. History Of Present Illness: Mr. Ulloa was in our hospital about a month ago. He refused a lot of th e tests we had done, went home from the hospital, saw Dr. Eubanks a couple times, and we were trying to get rid of excess fluid, anticoagulate him. He is in chronic atrial fibrillation, depressed eject ion fraction, and was refusing a lot of therapies we had in mind. His outpatient medications had included Xarelto, Zaroxolyn, Coreg, Lasix, and lisinopril, although th ere was some question about how much he was taking and when, once he arrived in the ER he was intubat ed. He has been unresponsive since then. His pupils are dilated. He appeared to be in septic or ca rdiogenic shock. His blood pressure has come up with pressors. He has a severe metabolic acidosis n ow with a pCO2 of 25 and a pH of 7.3. The base excess is -15. Mr. Ulloa never had any health proble ms that he knew of until he came to the hospital about a month ago with shortness of breath when we d iscovered heart failure, atrial fibrillation, and various other problems and are attempting to treat him as an outpatient. There was no apparent cardiac arrest. There may have been a respiratory arres t, but it looks like a basal dilatory circulatory arrest, and I am not really sure that we know what the real cause of it is that of course could be a cardiogenic shock that he was in. He has cholelith iasis and thickened gallbladder wall. The chest x-ray reveals pulmonary edema. Physical Examination: General: He is 6 feet tall, 264 pounds. Skin is mottled. He is comatose, intubated in the intensiv e care unit. Lungs: Reveals wet sounding sounds on both sides. The breath sounds are equal bilaterally. Heart: Irregularly irregular, going about 126. Abdomen: Obese. Mild abdominal wall edema. Marked edema of the scrotum, legs, thighs, buttock, pre sacral. Extremities: Distal pulses not palpable. Laboratory Data: Lab exam reveals an elevated white blood cell count, left shift, but not a dramatic one. His uric acid is 11. His calcium 6.3, creatinine 4.14, potassium 3.7. Impression: Mr. Ulloa has had a collapse. I suspect it is not cardiogenic shock, but redistributive shock or septic shock. His procalcitonin level was almost 35 and consistent with that he has gallst ones. We do not have any cultures or definite sources of infection, but I would suspect gallstones m ay have been a part of it. Recommendation: The patient is made DNR. That is according to his wishes. He was very reluctant to even come to the hospital a month ago. He was reluctant to take the medicines that Dr. Eubanks was giving, and I think he has had circulatory collapse now, possibly from infection. His chance of angel vering is low. KRISTEN/SOLO Voice ID: [id number] Report ID: [id number]
[2017-11-08] MEDS ORDERED: VANCOMYCIN/NS 1 gm 1 GM/250 ML BAG IVPB SCH (14:00)
[2017-11-08 14:19] VITALS: BP 104/86
--- NOTE | 2017-11-08 15:10 | DS ---
The patient on 11/08/2017. Consultants Cardiology Dr. Connell Nephrology Dr. Tirado Pulmonology Dr. Ceja Admitting Diagnoses: 1. Sepsis. 2. Multiorgan failure. 3. Atrial fibrillation with rapid ventricular response. 4. Hypotensive shock. 5. Coagulopathy. 6. Acute respiratory failure. 7. Acute congestive heart failure, systolic dysfunction. 8. Elevated troponin. 9. Hypomagnesemia. 10. Hypokalemia. 11. Acute kidney injury. 12. History of basal cell carcinoma, untreated. 13. Noncompliance. 14. Obesity, BMI 35. 15. Healthcare-associated pneumonia Hospital Course: The patient is a 72-year-old male with multiple comorbid conditions, who was admitted to the hospital yesterday, very ill, in hypotensive shock with multiorgan failure, sepsis likely pulmonary source. The patient had been maxed out on pressors, was in atrial fibrillation with RVR, had hypotensive shock with multiorgan dysfunction, coagulopathy, non- responsive. The patient was intubated and kept in the ICU, however, continued to deteriorate. He also had high fevers. The patient became nonresponsive. His skin mottled. He was cold, dropping blood pressure and heart rate. Family was made aware of the poor prognosis. Cardiology, Nephrology, Pulmonology were consulted. The patient had low urine output. decided to make patient DNR and did not want any further CPR, ACLS medications, however, wanted to continue active care until her sons arrived from [place]. They, however, will not be here till the evening. The patient unfortunately did not survive long enough for their arrival. The patient continued to deteriorate and was around 12:25 p.m. The patient likely had multiple abnormalities leading up to his condition. He was never treated for his basal cell carcinoma, which may have metastasized. The patient was not compliant with his medications given to him from his last visit to this hospital last month. The patient did use alternative medicine. The patient had multiorgan failure related to hypotensive shock from sepsis likely stemming from pneumonia, had been sick for past several days where he was non responsive, not eating, did not bring him to medical attention. She felt that his medications had several side effects and stopped them. He had come in with atrial fibrillation with RVR, shortness of breath, and volume overloaded in the setting of acute renal failure. SA/MODL Voice ID: [id number] Report ID: [id number] [facility]
[2017-11-10] MEDS ORDERED: VANCOMYCIN/NS 1 gm 1 GM/250 ML BAG IVPB SCH (02:00)
== END 2017-11-08 23:05 | disposition expired | DRG 871 ==
LOC: ER 09:08 → ERHOLD 12:04 → 3RD-ICU 20:09
PROVIDERS: ADMIT Family Medicine; ATTEND Family Medicine
PROC: 0BH17EZ Insertion of Endotracheal Airway into Trachea, Via Natural or Artificial Opening (ICD-10-PCS; principal; 2017-11-07)
PROC: 5A1945Z Respiratory Ventilation, 24-96 Consecutive Hours (ICD-10-PCS; 2017-11-07)
DX: A41.9 Sepsis, unspecified organism (principal); J96.00 Acute respiratory failure, unspecified whether with hypoxia or hypercapnia; J18.9 Pneumonia, unspecified organism; I50.21 Acute systolic (congestive) heart failure; G93.41 Metabolic encephalopathy; D68.9 Coagulation defect, unspecified; N17.9 Acute kidney failure, unspecified; E87.2 Acidosis; E87.1 Hypo-osmolality and hyponatremia; R65.20 Severe sepsis without septic shock; I48.91 Unspecified atrial fibrillation; Y95 Nosocomial condition; E83.42 Hypomagnesemia; E87.6 Hypokalemia; Z91.14 Patient's other noncompliance with medication regimen; E66.9 Obesity, unspecified; Z68.35 Body mass index [BMI] 35.0-35.9, adult; C44.91 Basal cell carcinoma of skin, unspecified; K80.20 Calculus of gallbladder without cholecystitis without obstruction; E83.39 Other disorders of phosphorus metabolism; E83.51 Hypocalcemia; Z88.0 Allergy status to penicillin
CPT/HCPCS: 31500; 36415; 51702; 70450; 71045; 76705; 76770; 80048; 80053; 80076; 81003; 82570; 82805; 82962; 83605; 83615; 83735; 83880; 84100; 84132; 84145; 84156; 84484; 84550; 85025; 85610; 85730; 86900; 86901; 87040; 87077; 87086; 87088; 87186; 87205; 87804; 93005; 93971; 94002; 94660; 99291; 99292; J0330; J0692; J1265; J1720; J1940; J2250; J2370; J3010; J3370; J3475; J7060; P9047; P9059